=== PATIENT | female | born 1940 | race Two or more races ===

== ENCOUNTER 2025-01-30 13:01 | Inpatient (IN) | payer MEDICARE, OTHER ==
[~2025-01-30] VITALS: Ht 162.6 cm; Wt 74.6 kg
--- NOTE | 2025-01-30 13:17 | ED.PDOC ---
History of Present Illness HPI Comments HPI: Poor Historian. 84-year-old female brought in by ambulance from home for evaluation of generalized weakness that was noted today by family members. Patient herself denies any acute generalized weakness. Patient is nonambulatory. Patient is oxygen dependent at home. No family members available at bedside at the time of my evaluation. history of breast cancer but is not receiving any treatment at this time Past Medical History: Past Surgical History: Mastectomy REVIEW OF SYSTEMS: CONSTITUTIONAL: Denies acute: fever, diaphoresis, chills, HEAD: Denies acute: headache, photophobia Eyes: Denies acute: Double vision, vision loss, eye pain, eye discharge. EARS: Denies acute: tinnitus, hearing loss, ear discharge, ear pain, THROAT: Denies acute: sore throat, swelling, difficulty swallowing , pain with swallowing, change in voice. NECK: Denies acute: neck pain, neck swelling, stiff neck. HEART: Denies acute : chest pain, palpitations, LUNGS: Denies acute: SOB, wheezing, cough, hemoptysis ABDOMEN: Denies acute: abdominal pain, Nausea, Vomiting, diarrhea, melena , hematemesis, hematochezia SKIN: Denies acute: rash, redness, lesions, itchiness. EXTREMITIES: Denies acute: calf pain, numbness, tingling, weakness, denies pain in extremity. Denies acute: Low back pain. Neuro: Denies acute: focal neurological deficit, motor or sensory focal neurological deficit, tremors, seizure like activity, confusion, dizziness, change in mental status, loss of bowel or bladder function, cauda equina like symptoms. : Denies acute: dysuria, hematuria, flank pain, increase in urinary frequency. PSYCH: Denies acute: hallucination, suicidal ideation, homicidal ideation. FEMALE: Denies acute: abnormal vaginal bleeding, foul odor, unusual discharge. PHYSICAL EXAM: General: ---no-----acute distress, awake and alert. Head: normocephalic, atraumatic. Neck: supple, trachea is midline, no swelling. Throat: Normal phonation. Eyes:, no erythema, no purulent discharge, no proptosis, no icterus. Heart: regular rate, regular rhythm, no significant murmur appreciated. Lungs: no apparent respiratory distress, Able to speak in full sentences. No wheezing, no rhonchi, no crackles. No stridors Clear to auscultation bilaterally. Abdomen: non tender to palpation, non distended, soft, no guarding, no rebound, + bowel sounds. Neuro: Awake, Alert, oriented to name, self, situation, follows commands GCS=15. Speech is normal. Skin: no petechia, no purpura, no cyanosis, slightly-pale, not jaundice. Lower extremities: --trace bilateral - Pitting edema no deformity, no focal swelling, no calf TTP. Makes eye contact. moves all four extremities. Face: no apparent facial droop. ED COURSE: DISCLAIMER: This medical document was created using an electronic medical record system with voice recognition software and computerized dictation system. Although this docu ment has been carefully reviewed, there might still be some phonetic and typographical errors. Occasional wrong-word or "sound-alike" substitutions may have occurred due to the inherent limitations of voice recognition software. These areas are purely typographical due to imperfections of the software programs and do not reflect any compromise in the patient's medical care. Please read the chart carefully and recognize, using context, where these substitutions have occurred. Chief Complaint: General Weakness Time Seen by MD: 13:00 Reviewed Notes: Nurses Notes Allergies: Coded Allergies: Amoxicillin (Verified Allergy, Unknown, 01/30/25) Home Meds Reported Medications Amlodipine Besylate (Amlodipine Besylate) 5 Mg Tab, 1 TAB PO DAILY 01/30/25 Cholestyramine (Cholestyramine) 4 Gm Pow, 1 PKT PO BID 01/30/25 Levothyroxine Sodium (Levothyroxine Sodium) 88 Mcg Tab, 1 TAB PO DAILY 01/30/25 Lisinopril & Hydrochlorothiazi (Lisinopril/Hydrochlorothi) 1 Tab Tab, 1 TAB PO DAILY 01/30/25 Information Source: Patient, Emergency Med Personnel X-Ray, Labs, Meds, VS Vital Signs Date Time Temp Pulse Resp B/P (MAP) Pulse Ox O2 Delivery O2 Flow Rate FiO2 01/30/25 15:30 83 12 130/42 (71) 98 01/30/25 15:18 130/42 01/30/25 14:53 19 99 Nasal Cannula* 2 28 01/30/25 13:35 83 12 99 Nasal Cannula* 2 28 01/30/25 13:35 98.1 83 12 139/49 (79) 98 98.1 01/30/25 13:15 98.2 82 18 120/58 (78) 96 98.2 01/30/25 13:06 86 Lab Test 01/30/25 15:07 01/30/25 13:36 01/30/25 13:12 Range/Units Troponin I High Sensitivity 8 7 </=34 ng/L White Blood Count 4.9 4.4-10.8 10^3/uL Red Blood Count 2.94 L 4.0-5.20 10^6/uL Hemoglobin 8.6 L 12.2-16.2 g/dL Hematocrit 26.6 L 36.0-46.0 % Mean Corpuscular Volume 90.3 80.0-100.0 fL Mean Corpuscular Hemoglobin 29.3 28.0-32.0 pg Mean Corpuscular Hemoglobin Concent 32.5 32.0-36.0 g/dL Red Cell Distribution Width 16.9 H 11.8-14.3 % Platelet Count 204 140-450 10^3/uL Mean Platelet Volume 8.1 6.9-10.8 fL Neutrophils (%) (Auto) 77.1 37.0-80.0 % Lymphocytes (%) (Auto) 7.4 L 10.0-50.0 % Monocytes (%) (Auto) 10.0 0.0-12.0 % Eosinophils (%) (Auto) 5.0 0.0-7.0 % Basophils (%) (Auto) 0.5 0.0-2.0 % Neutrophils # (Auto) 3.8 1.6-8.6 10 ^3/uL Lymphocytes # (Auto) 0.4 0.4-5.4 10 ^3/uL Monocytes # (Auto) 0.5 0-1.3 10 ^3/uL Eosinophils # (Auto) 0.2 0-0.8 10 ^3/uL Basophils # (Auto) 0 0-0.2 10 ^3/uL Nucleated Red Blood Cells 0.1 % Sodium Level 137 136-145 mmol/L Potassium Level 5.7 *H 3.5-5.1 mmol/L Chloride Level 112 H 98-107 mmol/L Carbon Dioxide Level 16 L 20-31 mmol/L Anion Gap 9 5-15 Blood Urea Nitrogen 59 H 9-23 mg/dL Creatinine 6.26 H 0.550-1.02 mg/dL Glomerular Filtration Rate Calc 6 >90 mL/min BUN/Creatinine Ratio 9.4 L 10.0-20.0 Serum Glucose 98 74-106 mg/dL Hemoglobin A1c Pending Calcium Level 8.8 8.7-10.4 mg/dL Magnesium Level 1.6 1.6-2.6 mg/dL Total Bilirubin < 0.2 L 0.2-1.0 mg/dL Aspartate Amino Transferase (AST) 42 H 13-40 U/L Alanine Aminotransferase (ALT) 24 7-40 U/L Alkaline Phosphatase 72 46-116 U/L B-Type Natriuretic Peptide 281.70 0-100 pg/mL Total Protein 5.5 L 5.7-8.2 g/dL Albumin 3.6 3.2-4.8 g/dL POC Glucose 86 70-106 mg/dl Current Medications Medications (Trade) Dose Ordered Sig/Sheila Route Start Time Stop Time Status Last Admin Albuterol (Ventolin Medneb) 20 mg ONCE ONCE NEB 01/30/25 14:30 01/30/25 14:36 DC 01/30/25 14:53 Sodium Bicarbonate 50 ml ONCE ONCE IV 01/30/25 14:30 01/30/25 14:36 DC 01/30/25 15:15 Furosemide (Lasix Injection) 20 mg ONCE ONCE IV 01/30/25 14:30 01/30/25 14:36 DC 01/30/25 15:18 Calcium Gluconate/ Sodium Chloride 50 ml @ 120 mls/hr ONCE ONCE IV 01/30/25 14:30 01/30/25 14:54 DC 01/30/25 15:16 Zirconium Oxide (Lokelma) 10 gm ONCE ONCE PO 01/30/25 14:30 01/30/25 14:36 DC 01/30/25 15:15 Sodium Chloride 1,000 ml @ 1,000 mls/hr Q1H ONCE IV 01/30/25 14:45 01/30/25 15:44 DC 01/30/25 15:46 Time of 1ST Reevaluation: 13:30 Departure 1 Departure Time of Disposition: 14:28 Impression: Primary Impression: Acute renal failure Additional Impressions: Hyperkalemia UTI (urinary tract infection) Disposition: ADMITTED INPATIENT Admit to: Tele Condition: Guarded Discharged With: Self I personally scribed for DEWAYNE TOMLINSON DO ([email or web address]) on 01/30/25 at 13:17. Electronically submitted by [place] [email or web address]). DEWAYNE TOMLINSON DO Jan 30, 2025 13:17
[2025-01-30 13:35] VITALS: PULSE 83; RESP 12; O2SAT 99
[2025-01-30 13:56] LABS: Hematocrit 26.6 % (36.0-46.0); Hemoglobin 8.6 g/dL (12.2-16.2); Mean Corpuscular Hemoglobin 29.3 pg (28.0-32.0); Mean Corpuscular Volume 90.3 fL (80.0-100.0); Nucleated Red Blood Cells % 0.1 %
--- NOTE | 2025-01-30 14:10 | DVH ---
EXAM: XY CHEST PORTABLE HISTORY: gen weak COMPARISON: None TECHNIQUE: Portable upright AP view of the chest was performed. FINDINGS: There are diffuse bilateral interstitial opacities. No pneumothorax or consolidative infiltrates. The heart is borderline enlarged. There are postoperative changes of ACDF and spinal cord stimulator. IMPRESSION: Diffuse bilateral interstitial opacities may be due to CHF exacerbation, interstitial pneumonia, and/ or reactive airways disease.
[2025-01-30 14:14] LABS: Alanine Aminotransferase 24 U/L (7-40); Albumin 3.6 g/dL (3.2-4.8); Alkaline Phosphatase 72 U/L (46-116); Anion Gap 9 (5-15); BUN/Creatinine Ratio 9.4 (10.0-20.0); Calcium 8.8 mg/dL (8.7-10.4); Glucose 98 mg/dL (74-106); Magnesium 1.6 mg/dL (1.6-2.6); Sodium 137 mmol/L (136-145)
[2025-01-30 14:18] LABS: Blood Urea Nitrogen 59 mg/dL (9-23); Carbon Dioxide 16 mmol/L (20-31); Chloride 112 mmol/L (98-107)
[2025-01-30 14:21] LABS: Bilirubin, Total < 0.2 mg/dL (0.2-1.0)
[2025-01-30 14:22] LABS: Total Protein 5.5 g/dL (5.7-8.2)
[2025-01-30 14:24] LABS: Potassium 5.7 mmol/L (3.5-5.1)
[2025-01-30] MEDS: ALBUTEROL SULF 2.5 MG/0.5ML(0.5%) NEB SOLN NEB ONE (14:53)
[2025-01-30] MEDS: SODIUM BICARB 8.4% 50Meq/50ml SYR INJ IV ONE (15:15)
[2025-01-30] MEDS: SODIUM ZIRCONIUM CYCL 10 GM PAK PO ONE (15:15)
[2025-01-30] MEDS: CALCIUM GLUC 1,000mg/50ml-NS 50 ML IV ONE (15:16)
[2025-01-30] MEDS: FUROSEMIDE 20 MG/2 ML VIAL IV ONE (15:18)
[2025-01-30] MEDS ORDERED: LISI-287 PO (15:43)
[2025-01-30] MEDS ORDERED: CHOL4POW33 PO (15:43)
[2025-01-30] MEDS ORDERED: LEVO-177 PO (15:43)
[2025-01-30] MEDS ORDERED: AMLO1TAB22 PO (15:43)
[2025-01-30] MEDS ORDERED: ACETAMINOPHEN 325 MG TAB PO PRN (15:45)
[2025-01-30] MEDS ORDERED: MORPHINE SULFATE INJ 2 MG/ml SYRG IV PRN (15:45)
[2025-01-30] MEDS ORDERED: NITROGLYCERIN 0.4 MG SL TAB SL PRN (15:45)
--- NOTE | 2025-01-30 15:45 | DVHHP2 ---
History of Present Illness Reason for Visit: Generalized weakness History of Present Illness Anisa Davis is an 84-year-old female with past medical history of hyperlipidemia, diabetes, COPD, CKD, CHF, breast cancer status post bilateral mastectomy, yeast infection, recurrent UTIs, tonsillectomy, appendectomy, hysterectomy, neck fusion, back surgery, and right knee replacement who presents to the ED with generalized weakness x2 days. Patient's daughter Andrea is at the bedside and states that she was recently admitted to [facility] from December 17 to January 06 for UTI and was on doxycycline. Patient's daughter states that the last 2 days she has been progressively getting weak and she has been unable to h old bottles or cups in her hands. Patient denies any chest pain, shortness of breath, fever, chills, lightheadedness, dizziness, recent trauma or injury, recent sick contacts, recent travels, recent ingestion of spoiled food, abdominal pain, nausea, vomiti ng, or diarrhea. Patient's daughter also reports that she uses continuous oxygen 2 L nasal cannula at home. Currently at bedside patient wearing bilateral Loki hose. Cardiovascular: CHF, hyperipidemia Pulmonary: COPD Renal/: Chronic renal insuff, UTI Endocrine: Diabetes Past Medical History Breast cancer Yeast infection Past Surgical History: Appendectomy, Hysterectomy, Mastectomy, Other (Neck fusion, back surgery, and right knee replacement), Tonsillectomy Family History: None Smoke: Quit (Uses smoke 1 pack per day) ALCOHOL: none Drugs: None Lives: with Family Domestic Violence: Neg Review of Systems Constitutional: Yes: Weakness Allergies: Coded Allergies: Amoxicillin (Verified Allergy, Unknown, 01/30/25) Exam Vital Signs Vital Signs Date Time Temp Pulse Resp B/P (MAP) Pulse Ox O2 Delivery O2 Flow Rate FiO2 01/30/25 15:18 130/42 01/30/25 14:53 19 99 Nasal Cannula* 2 28 01/30/25 13:35 98.1 83 98.1 General Appearance: Alert, Oriented X3, Cooperative, No acute distress HEENT: Atraumatic, PERRLA, EOMI, Mucous membr. moist/pink Respiratory: Normal air movement Cardiovascular: Regular rate, Normal S1, Normal S2 Abdominal: Normal bowel sounds, Soft Extremities: Normal pulses Skin: No significant lesion Neuro: Normal speech, Normal tone, Sensation intact Psych/Mental Status: Mental status NL, Mood NL Labs/Xrays Labs Test 01/30/25 15:07 01/30/25 13:36 01/30/25 13:12 Range/Units Troponin I High Sensitivity 8 </=34 ng/L White Blood Count 4.9 4.4-10.8 10^3/uL Red Blood Count 2.94 L 4.0-5.20 10^6/uL Hemoglobin 8.6 L 12.2-16.2 g/dL Hematocrit 26.6 L 36.0-46.0 % Mean Corpuscular Volume 90.3 80.0-100.0 fL Mean Corpuscular Hemoglobin 29.3 28.0-32.0 pg Mean Corpuscular Hemoglobin Concent 32.5 32.0-36.0 g/dL Red Cell Distribution Width 16.9 H 11.8-14.3 % Platelet Count 204 140-450 10^3/uL Mean Platelet Volume 8.1 6.9-10.8 fL Neutrophils (%) (Auto) 77.1 37.0-80.0 % Lymphocytes (%) (Auto) 7.4 L 10.0-50.0 % Monocytes (%) (Auto) 10.0 0.0-12.0 % Eosinophils (%) (Auto) 5.0 0.0-7.0 % Basophils (%) (Auto) 0.5 0.0-2.0 % Neutrophils # (Auto) 3.8 1.6-8.6 10 ^3/uL Lymphocytes # (Auto) 0.4 0.4-5.4 10 ^3/uL Monocytes # (Auto) 0.5 0-1.3 10 ^3/uL Eosinophils # (Auto) 0.2 0-0.8 10 ^3/uL Basophils # (Auto) 0 0-0.2 10 ^3/uL Nucleated Red Blood Cells 0.1 % Sodium Level 137 136-145 mmol/L Potassium Level 5.7 *H 3.5-5.1 mmol/L Chloride Level 112 H 98-107 mmol/L Carbon Dioxide Level 16 L 20-31 mmol/L Anion Gap 9 5-15 Blood Urea Nitrogen 59 H 9-23 mg/dL Creatinine 6.26 H 0.550-1.02 mg/dL Glomerular Filtration Rate Calc 6 >90 mL/min BUN/Creatinine Ratio 9.4 L 10.0-20.0 Serum Glucose 98 74-106 mg/dL Calcium Level 8.8 8.7-10.4 mg/dL Magnesium Level 1.6 1.6-2.6 mg/dL Total Bilirubin < 0.2 L 0.2-1.0 mg/dL Aspartate Amino Transferase (AST) 42 H 13-40 U/L Alanine Aminotransferase (ALT) 24 7-40 U/L Alkaline Phosphatase 72 46-116 U/L B-Type Natriuretic Peptide 281.70 0-100 pg/mL Total Protein 5.5 L 5.7-8.2 g/dL Albumin 3.6 3.2-4.8 g/dL POC Glucose 86 70-106 mg/dl EXAM: XY CHEST PORTABLE HISTORY: gen weak COMPARISON: None TECHNIQUE: Portable upright AP view of the chest was performed. FINDINGS: There are diffuse bilateral interstitial opacities. No pneumothorax or consolidative infiltrates. The heart is borderline enlarged. There are postoperative changes of ACDF and spinal cord stimulator. IMPRESSION: Diffuse bilateral interstitial opacities may be due to CHF exacerbation, interstitial pneumonia, and/or reactive airways disease. Assessment/Plan Assessment/Plan Assessment Acute on chronic CHF exacerbation Acute hypoxic respiratory failure Generalized weakness Hyperkalemia Probable pneumonia versus reactive airway disease Probable UTI History of hyperlipidemia History of diabetes History of COPD on oxygen History of CKD 4 History of CHF History of breast cancer status post mastectomy bilateral History of yeast infection History of UTI History of tonsillectomy History of appendectomy History of hysterectomy History of neck fusion History of back surgery History of right knee replacement Plan Admit to tele Hemoglobin A1c ISS and Accu-Cheks Supportive oxygen Chest x-ray noted NS 1 L given ED Hyperkalemia protocol EKG UA Troponin negative x2 Mag level BNP Urine culture - when patient was placed with [facility] noted to have cloudy urine output IV antibiotics-levofloxacin Antiemetics Pain management Strict I&Os Daily weight Diuretics Diet Home medications reconciled DVT prophylaxis-Lovenox PUD prophylaxis-PPIs Discussed plan of care with patient and nurse Nephro consult [id number] Behavior change smoking greater than 10 minutes about use of other options [id number] Preventive counseling healthy eating habits, physical activity, and regular checkups Plan discussed with: Patient My Orders Orders - LALITA LAMA Procedure Category Date Status Time Admit ADMIT 01/30/25 Transmitted 15:39 Allergies PRISCILA 01/30/25 Transmitted 15:39 Code Status CODE 01/30/25 Transmitted 15:39 Ondansetron Hcl PHA 01/30/25 Transmitted (Zofran) 15:45 Complete Blood Count LAB 01/31/25 Verified 04:00 Comprehensive LAB 01/31/25 Verified Metabolic Panel 04:00 Acetaminophen Tablet PHA 01/30/25 Transmitted (Tylenol Tablet) 15:45 Nitroglycerin PHA 01/30/25 Transmitted Sublingual (Ntrostat 15:45 Morphine Sulfate PHA 01/30/25 Verified Injection 15:45 Stat Ekg For Chest [facility] 01/30/25 Verified Pain 15:39 Emergency Dysrhythmia [facility] 01/30/25 Verified Protocol 15:39 Rhythm Strips Once PRISCILA 01/30/25 Verified Every Shift 15:39 Oxygen By Nasal RT 01/30/25 Verified Cannula 15:39 Date of Service: Jan 30, 2025 Billing Provider: LALITA LAMA Common Visit Codes: 62511-ZAGYCFV INP/OBS CARE (HIGH) Secondary Visit Codes: 59182-DLHZGCSOJV COUNSELING IND, 64207-MWJLY CHNG SMOKING >10MIN LALITA LAMA Jan 30, 2025 15:45
[2025-01-30] MEDS: SODIUM CHLORIDE 0.9% 1,000 ML IV ONE (15:46)
[2025-01-30 16:30] LABS: Urine Protein, UAD TRACE (Negative); Urine WBC Clumps PRESENT /hpf (None Seen)
[2025-01-30] MEDS ORDERED: DEXTROSE (50%) 50ML SYRG IV PRN (17:15)
[2025-01-30] MEDS ORDERED: OXY5T PO (17:16)
[2025-01-30 20:00] VITALS: PULSE 95; RESP 18; O2SAT 98
[2025-01-30 21:00] VITALS: BP 102/52; PULSE 104; RESP 17; TEMP 97.6; O2SAT 96
[2025-01-30] MEDS: AZITHROMYCIN 500MG/ 250ML 250 ML IV ONE (21:02)
[2025-01-30] MEDS: InsuLIN REG 1unit/0.01ml Soln (100units/ml) SC SCH (21:11)
[2025-01-30] MEDS: ACCU-CHEK COMFORT CURVE STRIP VI SCH (21:11)
[2025-01-30] MEDS: CHOLESTYRAMINE 4 GM POWDER PO SCH (23:02)
[2025-01-30] MEDS ORDERED: SACC250C15 PO (23:12)
[2025-01-30] MEDS ORDERED: CHOLPOW4 PO (23:12)
[2025-01-30] MEDS ORDERED: MULT-1018 PO (23:12)
[2025-01-30] MEDS ORDERED: LOVA20TA4 PO (23:12)
[2025-01-30] MEDS ORDERED: GABA-1250 PO (23:12)
[2025-01-30] MEDS ORDERED: LEVO100T8 PO (23:12)
[2025-01-30] MEDS ORDERED: LETR2.5T PO (23:12)
[2025-01-31] VITALS (19 sets, daily range): BP systolic 89–129; BP diastolic 31–54; PULSE 87–112; RESP 12–20; TEMP 97.8–99.9; O2SAT 90–100
[2025-01-31] MEDS: LEVOTHYROXINE SODIUM 88 MCG TAB PO SCH (06:07)
[2025-01-31 07:03] LABS: Alanine Aminotransferase 21 U/L (7-40); Albumin 3.2 g/dL (3.2-4.8); Alkaline Phosphatase 58 U/L (46-116); Anion Gap 7 (5-15); BUN/Creatinine Ratio 8.8 (10.0-20.0); Nucleated Red Blood Cells % 0.1 %; Sodium 136 mmol/L (136-145)
[2025-01-31 07:06] LABS: Hematocrit 21.7 % (36.0-46.0); Hemoglobin 7.1 g/dL (12.2-16.2); Mean Corpuscular Hemoglobin 29.7 pg (28.0-32.0); Mean Corpuscular Volume 90.1 fL (80.0-100.0)
[2025-01-31 07:08] LABS: Potassium 5.4 mmol/L (3.5-5.1)
[2025-01-31 07:09] LABS: Bilirubin, Total < 0.2 mg/dL (0.2-1.0); Blood Urea Nitrogen 57 mg/dL (9-23); Calcium 8.2 mg/dL (8.7-10.4); Carbon Dioxide 17 mmol/L (20-31); Chloride 112 mmol/L (98-107); Glucose 106 mg/dL (74-106); Total Protein 5.2 g/dL (5.7-8.2)
[2025-01-31 09:03] LABS: Hematocrit 22.8 % (36.0-46.0); Hemoglobin 7.4 g/dL (12.2-16.2)
--- NOTE | 2025-01-31 09:13 | DVHCONRES ---
Family History: Patient reports no known family medical history. Allergies: Coded Allergies: Levofloxacin (Verified Allergy, Severe, 01/30/25) Amoxicillin (Verified Allergy, Unknown, 01/30/25) Home Meds Reported Medications Cholestyramine (Cholestyramine) Pow, 4 GM PO BID, POW 01/30/25 Multiple Vitamin (Multivitamins) Tab, 100 TAB PO DAILY, #90 TAB 3 Refills 01/30/25 Araujo's Yeast (Saccharomyces Boulardii) 250 Mg Cap, 250 MG PO, CAP 01/30/25 Lovastatin (Lovastatin) 20 Mg Tab, 20 MG PO, TAB 01/30/25 Levothyroxine Sodium (Levothyroxine Sodium) 100 Mcg Tab, 100 MCG PO QAM for 30 Days, MCG 01/30/25 Letrozole (Femara) 2.5 Mg Tab, 2.5 MG PO, TAB 01/30/25 Gabapentin (Gabapentin) 300 Mg Cap, 400 MG PO BID for 30 Days, MG 01/30/25 Oxycodone Hcl (OXYCODONE HCL) 5 Mg Tb, 20 MG PO Q6HPRN PRN for PAIN SCALE 7 THRU 10, TAB 01/30/25 Amlodipine Besylate (Amlodipine Besylate) 5 Mg Tab, 1 TAB PO DAILY 01/30/25 Cholestyramine (Cholestyramine) 4 Gm Pow, 1 PKT PO BID 01/30/25 Lisinopril & Hydrochlorothiazi (Lisinopril/Hydrochlorothi) 1 Tab Tab, 1 TAB PO DAILY 01/30/25 Discontinued Reported Medications Levothyroxine Sodium (Levothyroxine Sodium) 88 Mcg Tab, 1 TAB PO DAILY 01/30/25 Current Medications Current Medications Medications (Trade) Dose Ordered Sig/Sheila Route PRN Reason Start Time Stop Time Status Last Admin Ondansetron HCl (Zofran) 4 mg Q4HP PRN IV NAUSEA / VOMITING 01/30/25 15:45 Acetaminophen (Tylenol Tablet) 650 mg Q6HP PRN PO PAIN SCALE 1-3 OR TEMP>100.4 01/30/25 15:45 Nitroglycerin (Ntrostat Sublingual) 0.4 mg Q5MINP PRN SL FOR CHEST PAIN 01/30/25 15:45 Morphine Sulfate 2 mg Q30M PRN IV FOR CHEST PAIN 01/30/25 15:45 Amlodipine Besylate (Norvasc Tablet) 5 mg DAILY PO 01/31/25 10:00 Cholestyramine Resin (Questran Powder) 4 gm BID@1100,2300 PO 01/30/25 23:00 01/30/25 23:02 Levothyroxine Sodium (Synthroid Tablet) 88 mcg QAM PO 01/31/25 07:00 01/31/25 06:07 Patient Own Medication 1 tab DAILY PO 01/31/25 10:00 Future Hold Diagnostic Test (Pha) (Accu-Chek Comfort Curve T) 1 strip ACHS 01/30/25 22:00 01/31/25 06:07 Insulin Human Regular (InsuLIN R) ACHS SC 01/30/25 22:00 Dextrose 50 ml UD PRN IV Blood Sugar LESS THAN 60 01/30/25 17:15 Enoxaparin Sodium (Lovenox) 30 mg DAILY SC 01/31/25 10:00 Pantoprazole Sodium (Protonix) 40 mg DAILY IV 01/31/25 10:00 Levofloxacin 50 ml @ 50 mls/hr Q48H IV 02/01/25 17:30 01/30/25 20:27 DC Azithromycin 250 ml @ 125 mls/hr DAILY IV 01/31/25 10:00 Oxycodone HCl (OxyCONTIN ER Tablet) 20 mg Q6HP PRN PO PAIN SCALE 7 THRU 10 01/30/25 20:30 01/30/25 21:02 Vital Signs Vital Signs Date Time Temp Pulse Resp B/P (MAP) Pulse Ox O2 Delivery O2 Flow Rate FiO2 01/31/25 05:00 98.5 88 17 108/50 (69) 93 98.5 01/30/25 20:00 Nasal Cannula* 2 28 Labs/Diagnostic Data Labs Test 01/31/25 08:37 01/31/25 06:06 01/31/25 04:50 01/30/25 19:44 Range/Units Hemoglobin 7.4 L 12.2-16.2 g/dL Hematocrit 22.8 L 36.0-46.0 % POC Glucose 93 70-106 mg/dl White Blood Count 4.6 4.4-10.8 10^3/uL Red Blood Count 2.41 L 4.0-5.20 10^6/uL Mean Corpuscular Volume 90.1 80.0-100.0 fL Mean Corpuscular Hemoglobin 29.7 28.0-32.0 pg Mean Corpuscular Hemoglobin Concent 32.9 32.0-36.0 g/dL Red Cell Distribution Width 17.2 H 11.8-14.3 % Platelet Count 171 140-450 10^3/uL Mean Platelet Volume 8.7 6.9-10.8 fL Neutrophils (%) (Auto) 85.8 H 37.0-80.0 % Lymphocytes (%) (Auto) 4.6 L 10.0-50.0 % Monocytes (%) (Auto) 9.1 0.0-12.0 % Eosinophils (%) (Auto) 0.3 0.0-7.0 % Basophils (%) (Auto) 0.2 0.0-2.0 % Neutrophils # (Auto) 4.0 1.6-8.6 10 ^3/uL Lymphocytes # (Auto) 0.2 L 0.4-5.4 10 ^3/uL Monocytes # (Auto) 0.4 0-1.3 10 ^3/uL Eosinophils # (Auto) 0 0-0.8 10 ^3/uL Basophils # (Auto) 0 0-0.2 10 ^3/uL Nucleated Red Blood Cells 0.1 % Sodium Level 136 136-145 mmol/L Potassium Level 5.4 H 3.5-5.1 mmol/L Chloride Level 112 H 98-107 mmol/L Carbon Dioxide Level 17 L 20-31 mmol/L Anion Gap 7 5-15 Blood Urea Nitrogen 57 H 9-23 mg/dL Creatinine 6.45 H 0.550-1.02 mg/dL Glomerular Filtration Rate Calc 6 >90 mL/min BUN/Creatinine Ratio 8.8 L 10.0-20.0 Serum Glucose 106 74-106 mg/dL Calcium Level 8.2 L 8.7-10.4 mg/dL Total Bilirubin < 0.2 L 0.2-1.0 mg/dL Aspartate Amino Transferase (AST) 36 13-40 U/L Alanine Aminotransferase (ALT) 21 7-40 U/L Alkaline Phosphatase 58 46-116 U/L Total Protein 5.2 L 5.7-8.2 g/dL Albumin 3.2 3.2-4.8 g/dL Troponin I High Sensitivity 19 </=34 ng/L Test 01/30/25 16:12 01/30/25 13:36 Range/Units Urine Color Colorless Yellow Urine Clarity Ex.turbid Clear Urine pH 5.0 5.0-9.0 Urine Specific [place] 1.008 1.001-1.035 Urine Protein Trace H Negative Urine Ketones Negative Negative Urine Blood Trace H Negative /uL Urine Nitrite Negative Negative Urine Bilirubin Negative Negative Urine Urobilinogen Normal Negative mg/dL Urine Leukocyte Esterase 3+ Negative /uL Urine RBC 12 0 - 4 /hpf Urine WBC Clumps Present None Seen /hpf Urine Microscopic WBC 456 H 0-5 /HPF Urine Squamous Epithelial Cells None seen <5 /hpf Urine Bacteria Few H None Seen /hpf Urine Glucose Normal Normal mg/dL Hemoglobin A1c 4.9 <5.7 % A1C Magnesium Level 1.6 1.6-2.6 mg/dL B-Type Natriuretic Peptide 281.70 0-100 pg/mL Microbiology Date/Time Source Procedure Growth Status 01/30/25 16:12 Urine - [facility] [place] Urine Culture - Preliminary Resulted PATRICIO ENGEL RESIDENT Jan 31, 2025 09:13
[2025-01-31] MEDS ORDERED: LISINOPRIL PO SCH (10:00)
[2025-01-31] MEDS ORDERED: HYDROCHLOROTHIAZIDE PO SCH (10:00)
--- NOTE | 2025-01-31 10:04 | DVH ---
EXAM: US Retroperitoneal Limited, Renal CLINICAL INDICATION: Pain TECHNIQUE: Real-time limited ultrasound of the retroperitoneum with image documentation. COMPARISON: No relevant prior studies available. FINDINGS: RIGHT KIDNEY: Right kidney measures up to 9.98 cm. No stones. No hydronephrosis. LEFT KIDNEY: Left kidney measures up to 11.944 cm. No stones. No hydronephrosis. TUBES, LINES AND DEVICES: Urinary blastic respiratory catheter. IMPRESSION: No acute findings in the retroperitoneum.
[2025-01-31] MEDS: PANTOPRAZOLE 40 MG/10 ML VIAL INJ IV SCH (10:54)
[2025-01-31] MEDS: AZITHROMYCIN 500MG/ 250ML 250 ML IV SCH (10:54)
[2025-01-31] MEDS: ENOXAPARIN SOD 30 MG/0.3 ML SYRINGE SC SCH (10:54)
--- NOTE | 2025-01-31 11:39 | DVHPN2 ---
Changes from previous H/P or p: No Changes Objective Vitals Vital Signs Date Time Temp Pulse Resp B/P (MAP) Pulse Ox O2 Delivery O2 Flow Rate FiO2 01/31/25 10:00 123/45 01/31/25 05:00 98.5 88 17 93 98.5 01/30/25 20:00 Nasal Cannula* 2 28 Intake/Output Intake and Output 01/31/25 07:00 Intake Total 1320 ml Output Total 550 ml Balance 770 ml Intake Oral 20 ml IV Total 1300 ml Output Urine Total 550 ml Medications Current Medications Medications Dose Ordered Sig/Sheila Route Start Time Stop Time Status Last Admin Dose Admin Ondansetron HCl 4 mg Q4HP PRN IV 01/30/25 15:45 Acetaminophen 650 mg Q6HP PRN PO 01/30/25 15:45 Nitroglycerin 0.4 mg Q5MINP PRN SL 01/30/25 15:45 Morphine Sulfate 2 mg Q30M PRN IV 01/30/25 15:45 Amlodipine Besylate 5 mg DAILY PO 01/31/25 10:00 Cholestyramine Resin 4 gm BID@1100,2300 PO 01/30/25 23:00 01/31/25 10:54 4 GM Levothyroxine Sodium 88 mcg QAM PO 01/31/25 07:00 01/31/25 06:07 88 MCG Diagnostic Test (Pha) 1 strip ACHS 01/30/25 22:00 01/31/25 06:07 1 STRIP Insulin Human Regular ACHS SC 01/30/25 22:00 Dextrose 50 ml UD PRN IV 01/30/25 17:15 Enoxaparin Sodium 30 mg DAILY SC 01/31/25 10:00 01/31/25 10:54 30 MG Pantoprazole Sodium 40 mg DAILY IV 01/31/25 10:00 01/31/25 10:54 40 MG Azithromycin 250 ml @ 125 mls/hr DAILY IV 01/31/25 10:00 01/31/25 10:54 125 MLS/HR Oxycodone HCl 20 mg Q6HP PRN PO 01/30/25 20:30 01/30/25 21:02 20 MG Laboratory Results Laboratory Tests 01/31/25 04:50 01/31/25 08:37 Chemistry Test 01/30/25 13:36 01/31/25 04:50 Albumin 3.6 g/dL (3.2-4.8) 3.2 g/dL (3.2-4.8) Calcium Level 8.8 mg/dL (8.7-10.4) 8.2 mg/dL (8.7-10.4) L Magnesium Level 1.6 mg/dL (1.6-2.6) Total Protein 5.5 g/dL (5.7-8.2) L 5.2 g/dL (5.7-8.2) L Cardiac Markers Test 01/30/25 13:36 B-Type Natriuretic Peptide 281.70 pg/mL (0-100) LFT Test 01/30/25 13:36 01/31/25 04:50 Alanine Aminotransferase (ALT) 24 U/L (7-40) 21 U/L (7-40) Alkaline Phosphatase 72 U/L (46-116) 58 U/L (46-116) Aspartate Amino Transferase (AST) 42 U/L (13-40) H 36 U/L (13-40) Total Bilirubin < 0.2 mg/dL (0.2-1.0) L < 0.2 mg/dL (0.2-1.0) L HgA1c, TSH Test 01/30/25 13:36 Hemoglobin A1c 4.9 % A1C (<5.7) Urinalysis Test 01/30/25 16:12 Urine Color Colorless (Yellow) Urine Clarity Ex.turbid (Clear) Urine pH 5.0 (5.0-9.0) Urine Specific [place] 1.008 (1.001-1.035) Urine Protein Trace (Negative) H Urine Ketones Negative (Negative) Urine Blood Trace /uL (Negative) H Urine Nitrite Negative (Negative) Urine Bilirubin Negative (Negative) Urine Urobilinogen Normal mg/dL (Negative) Urine Leukocyte Esterase 3+ /uL (Negative) Urine RBC 12 /hpf (0 - 4) Urine WBC Clumps Present /hpf (None Seen) Urine Microscopic WBC 456 /HPF (0-5) H Urine Squamous Epithelial Cells None seen /hpf (<5) Urine Bacteria Few /hpf (None Seen) H Urine Glucose Normal mg/dL (Normal) Microbiology Microbiology Date/Time Source Procedure Growth Status 01/30/25 16:12 Urine - [place] Urine Culture - Preliminary Resulted Labs and/or images reviewed: Labs reviewed by me, Image(s) reviewed by me Assessment/Plan Assessment/Plan Septic shock secondary to urinary tract infection Acute urinary tract infection; urine cultures showing Enterococcus: Zyvox 600 mg IV q 12 hrs Acute on chronic CHF exacerbation : Echo, cardiology consult Acute hypoxic respiratory failure Acute generalized weakness Acute hyperkalemia CKD 5 /ESRD: Nephrology consult for DR Sifuentes Acute COPD exacerbation History of breast cancer status post bilateral mastectomy chemotherapy 2020, recent recurrence for which he was admitted to [facility] Severe anemia hemoglobin 7.1: RBC transfusion, GI consult for Dr Ricardo History of recurrent UTIs History of Back surgery and neck surgery Daughter ZHANNA Ann [phone] at bedside General condition very poor prognosis very poor PCP DR Esparza Time spent 75 minutes Advanced care planning time 20 minutes Patient is full code Plan discussed with: Patient My Orders Orders - LADONNA GRAY MD Procedure Category Date Status Time Linzeolid 600 Mg Ivpb PHA 01/31/25 Transmitted 22:00 Date of Service: Jan 31, 2025 Billing Provider: LADONNA GRAY MD Common Visit Codes: 82398-[id number] CARE 30-74 MIN, [id number] CARE-EACH +30MIN LADONNA GRAY MD Jan 31, 2025 11:39
[2025-01-31] MEDS: ALBUTEROL SULF 2.5 MG/0.5ML(0.5%) NEB SOLN NEB ONE (11:45)
[2025-01-31 12:23] LABS: Protein, Urine 37.1 mg/dL (1-14)
[2025-01-31] MEDS: SODIUM BICARB 8.4% 50Meq/50ml SYR INJ IV ONE (12:29)
[2025-01-31] MEDS: DEXTROSE (50%) 50ML SYRG IV ONE (12:29)
[2025-01-31] MEDS: FUROSEMIDE 20 MG/2 ML VIAL IV ONE (12:30)
[2025-01-31] MEDS: SODIUM ZIRCONIUM CYCL 10 GM PAK PO ONE (12:31)
[2025-01-31] MEDS: InsuLIN REG 1unit/0.01ml Soln (100units/ml) IV ONE (12:33)
[2025-01-31] MEDS: LINEZOLID 600MG/300ML 300 ML IV ONE (12:58)
[2025-01-31 13:41] LABS: COVID19 ANTIGEN SOFIA FIA NEGATIVE (NEGATIVE)
[2025-01-31 15:25] LABS: Triglycerides 81 mg/dL (< 150)
[2025-01-31 15:27] LABS: Cholesterol 100 mg/dL (< 200)
[2025-01-31 15:29] LABS: HDL Cholesterol 33 mg/dL (40-59)
[2025-01-31] MEDS: SOD CHL IV SCH (15:30)
[2025-01-31] MEDS: D5 IV SCH (15:30)
[2025-01-31] MEDS: SODIUM BICARB IV SCH (15:30)
--- NOTE | 2025-01-31 15:31 | DVHINCON2 ---
Date of service: Jan 31, [address] Siddharth Villa Reason for Consultation Elevated BUN and creatinine, hyperkalemia History of Present Illness This is a 84-year-old female with history of breast cancer status post bilateral mastectomy and for which she was undergoing chemotherapy till recently, type 2 diabetes, hyperlipidemia brought into the emergency room because of generalized weakness. Patient had recent hospitalization in [facility] for TG. Patient responded to IV hydration. There was improvement in her GFR and she did not require renal replacement therapy. Labs on this admission here again shows a creatinine at 6.5. Also noted to be hyperkalemic with a potassium of 5.7. Nephrology consulted for the same. Patient seen and examined at bedside. Daughters are at bedside. Patient is extremely lethargic. Past Medical History As stated above Past Surgical History Mastectomy Family History: Patient reports no known family medical history. Social History No history of smoking, alcohol or drug abuse Allergies: Coded Allergies: Levofloxacin (Verified Allergy, Severe, 01/30/25) Amoxicillin (Verified Allergy, Unknown, 01/30/25) Home Meds Reported Medications Cholestyramine (Cholestyramine) Pow, 4 GM PO BID, POW 01/30/25 Multiple Vitamin (Multivitamins) Tab, 100 TAB PO DAILY, #90 TAB 3 Refills 01/30/25 Araujo's Yeast (Saccharomyces Boulardii) 250 Mg Cap, 250 MG PO, CAP 01/30/25 Lovastatin (Lovastatin) 20 Mg Tab, 20 MG PO, TAB 01/30/25 Levothyroxine Sodium (Levothyroxine Sodium) 100 Mcg Tab, 100 MCG PO QAM for 30 Days, MCG 01/30/25 Letrozole (Femara) 2.5 Mg Tab, 2.5 MG PO, TAB 01/30/25 Gabapentin (Gabapentin) 300 Mg Cap, 400 MG PO BID for 30 Days, MG 01/30/25 Oxycodone Hcl (OXYCODONE HCL) 5 Mg Tb, 20 MG PO Q6HPRN PRN for PAIN SCALE 7 THRU 10, TAB 01/30/25 Amlodipine Besylate (Amlodipine Besylate) 5 Mg Tab, 1 TAB PO DAILY 01/30/25 Cholestyramine (Cholestyramine) 4 Gm Pow, 1 PKT PO BID 01/30/25 Lisinopril & Hydrochlorothiazi (Lisinopril/Hydrochlorothi) 1 Tab Tab, 1 TAB PO DAILY 01/30/25 Discontinued Reported Medications Levothyroxine Sodium (Levothyroxine Sodium) 88 Mcg Tab, 1 TAB PO DAILY 01/30/25 Current Medications Current Medications Medications (Trade) Dose Ordered Sig/Sheila Route PRN Reason Start Time Stop Time Status Last Admin Ondansetron HCl (Zofran) 4 mg Q4HP PRN IV NAUSEA / VOMITING 01/30/25 15:45 Acetaminophen (Tylenol Tablet) 650 mg Q6HP PRN PO PAIN SCALE 1-3 OR TEMP>100.4 01/30/25 15:45 Nitroglycerin (Ntrostat Sublingual) 0.4 mg Q5MINP PRN SL FOR CHEST PAIN 01/30/25 15:45 Morphine Sulfate 2 mg Q30M PRN IV FOR CHEST PAIN 01/30/25 15:45 Amlodipine Besylate (Norvasc Tablet) 5 mg DAILY PO 01/31/25 10:00 Cholestyramine Resin (Questran Powder) 4 gm BID@1100,2300 PO 01/30/25 23:00 01/31/25 10:54 Levothyroxine Sodium (Synthroid Tablet) 88 mcg QAM PO 01/31/25 07:00 01/31/25 06:07 Patient Own Medication 1 tab DAILY PO 01/31/25 10:00 01/31/25 10:53 DC Diagnostic Test (Pha) (Accu-Chek Comfort Curve T) 1 strip ACHS 01/30/25 22:00 01/31/25 11:56 Insulin Human Regular (InsuLIN R) ACHS SC 01/30/25 22:00 Dextrose 50 ml UD PRN IV Blood Sugar LESS THAN 60 01/30/25 17:15 Enoxaparin Sodium (Lovenox) 30 mg DAILY SC 01/31/25 10:00 01/31/25 10:54 Pantoprazole Sodium (Protonix) 40 mg DAILY IV 01/31/25 10:00 01/31/25 10:54 Levofloxacin 50 ml @ 50 mls/hr Q48H IV 02/01/25 17:30 01/30/25 20:27 DC Azithromycin 250 ml @ 125 mls/hr DAILY IV 01/31/25 10:00 01/31/25 10:54 Oxycodone HCl (OxyCONTIN ER Tablet) 20 mg Q6HP PRN PO PAIN SCALE 7 THRU 10 01/30/25 20:30 01/30/25 21:02 Linezolid 300 ml @ 150 mls/hr Q12HR@0800,2200 IV 01/31/25 22:00 Review of Systems Unable to obtain because of her altered mentation Vital Signs Vital Signs Date Time Temp Pulse Resp B/P (MAP) Pulse Ox O2 Delivery O2 Flow Rate FiO2 01/31/25 13:00 98.1 92 17 106/44 (64) 93 98.1 01/31/25 11:45 Nasal Cannula 2.0 01/31/25 11:45 28 Physical Exam Patient is lethargic HEENT: Normocephalic Lungs: Bilateral good air entry CVS: S1, S2 regular rate rhythm Abdomen: Soft, bowel sounds present STATION USHER: Lethargic Extremities: No edema Labs/Diagnostic Data Labs Test 01/31/25 11:55 01/31/25 11:40 01/31/25 08:37 01/31/25 04:50 Range/Units POC Glucose 105 70-106 mg/dl Influenza Type A Antigen Negative Negative Influenza Type B Antigen Negative Negative SARS-CoV-2 Antigen (Rapid) Negative NEGATIVE Hemoglobin 7.4 L 12.2-16.2 g/dL Hematocrit 22.8 L 36.0-46.0 % White Blood Count 4.6 4.4-10.8 10^3/uL Red Blood Count 2.41 L 4.0-5.20 10^6/uL Mean Corpuscular Volume 90.1 80.0-100.0 fL Mean Corpuscular Hemoglobin 29.7 28.0-32.0 pg Mean Corpuscular Hemoglobin Concent 32.9 32.0-36.0 g/dL Red Cell Distribution Width 17.2 H 11.8-14.3 % Platelet Count 171 140-450 10^3/uL Mean Platelet Volume 8.7 6.9-10.8 fL Neutrophils (%) (Auto) 85.8 H 37.0-80.0 % Lymphocytes (%) (Auto) 4.6 L 10.0-50.0 % Monocytes (%) (Auto) 9.1 0.0-12.0 % Eosinophils (%) (Auto) 0.3 0.0-7.0 % Basophils (%) (Auto) 0.2 0.0-2.0 % Neutrophils # (Auto) 4.0 1.6-8.6 10 ^3/uL Lymphocytes # (Auto) 0.2 L 0.4-5.4 10 ^3/uL Monocytes # (Auto) 0.4 0-1.3 10 ^3/uL Eosinophils # (Auto) 0 0-0.8 10 ^3/uL Basophils # (Auto) 0 0-0.2 10 ^3/uL Nucleated Red Blood Cells 0.1 % Sodium Level 136 136-145 mmol/L Potassium Level 5.4 H 3.5-5.1 mmol/L Chloride Level 112 H 98-107 mmol/L Carbon Dioxide Level 17 L 20-31 mmol/L Anion Gap 7 5-15 Blood Urea Nitrogen 57 H 9-23 mg/dL Creatinine 6.45 H 0.550-1.02 mg/dL Glomerular Filtration Rate Calc 6 >90 mL/min BUN/Creatinine Ratio 8.8 L 10.0-20.0 Serum Glucose 106 74-106 mg/dL Calcium Level 8.2 L 8.7-10.4 mg/dL Total Bilirubin < 0.2 L 0.2-1.0 mg/dL Aspartate Amino Transferase (AST) 36 13-40 U/L Alanine Aminotransferase (ALT) 21 7-40 U/L Alkaline Phosphatase 58 46-116 U/L Total Protein 5.2 L 5.7-8.2 g/dL Albumin 3.2 3.2-4.8 g/dL Vitamin B12 Level 471 211-911 pg/mL Vitamin D 25-Hydroxy 34.7 30.0-100 ng/mL Parathyroid Hormone (Intact) 201.3 H 18.4-80.1 pg/mL Test 01/30/25 19:44 01/30/25 16:12 01/30/25 13:36 Range/Units Troponin I High Sensitivity 19 </=34 ng/L Urine Color Colorless Yellow Urine Clarity Ex.turbid Clear Urine pH 5.0 5.0-9.0 Urine Specific [place] 1.008 1.001-1.035 Urine Protein Trace H Negative Urine Ketones Negative Negative Urine Blood Trace H Negative /uL Urine Nitrite Negative Negative Urine Bilirubin Negative Negative Urine Urobilinogen Normal Negative mg/dL Urine Leukocyte Esterase 3+ Negative /uL Urine RBC 12 0 - 4 /hpf Urine WBC Clumps Present None Seen /hpf Urine Microscopic WBC 456 H 0-5 /HPF Urine Squamous Epithelial Cells None seen <5 /hpf Urine Bacteria Few H None Seen /hpf Urine Creatinine 49.98 30.0-125.0 mg/dL Urine Protein/Creatinine Ratio 0.74 Urine Sodium 56 40-220 mmol/L Urine Glucose Normal Normal mg/dL Urine Total Protein 37.1 H 1-14 mg/dL Hemoglobin A1c 4.9 <5.7 % A1C Magnesium Level 1.6 1.6-2.6 mg/dL B-Type Natriuretic Peptide 281.70 0-100 pg/mL Microbiology Date/Time Source Procedure Growth Status 01/30/25 16:12 Urine - [place] Urine Culture - Preliminary Resulted Assessment Oliguric acute kidney injury secondary to ATN. Underlying Chronic kidney disease stage 3 UTI with Enterococcus Metabolic encephalopathy Hyperkalemia History of breast cancer Anemia Plan/Recommendation Start the patient on bicarb drip. D5 half NS with 75 mEq of sodium bicarb to run at 75 mL/hr. IV antibiotics Strict I's and O's Potassium levels have shown improvement. Transfusion as per primary. Labs in a.m. Plan discussed with: Daughter (In her the one here the for the patient is here) DEBORAH GARLAND MD Jan 31, 2025 15:31
--- NOTE | 2025-01-31 15:45 | DVHINCON2 ---
YO TORREZ [facility] 01/31/25 1545: Date Seen: Jan 31, 2025 Referring Physician MD Allen Reason for Consultation Possible CHF History of Present Illness This is an 84-year-old female patient who presents to the emergency room with chief complaint of generalized weakness. At the time of assessment, the patient appears confused and is not able to answer all questions. Patient's daughter, Andrea, at bedside able to further assist. Per Andrea, the patient was appearing to be weaker than usual when she was being assisted to the restroom at home. The patient came into the emergency room for further evaluation. Cardiology has been consulted at this time to rule out CHF. 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 Troponin levels have been negative. The patient denies any cardiac symptoms. Significant past medical history includes hypertension, dyslipidemia, thyroid disease, type 2 diabetes mellitus, breast cancer with bone metastasis (per [facility] report brought in by daughter), chronic kidney disease, and frequent urinary tract infections. Past Medical History Past medical history reviewed. No other significant than mentioned above. Past Surgical History Bilateral mastectomy Right knee replacement Left hip replacement Bilateral carpal tunnel surgery Multiple spinal fusions Family History: Patient reports no known family medical history. Family History Family history reviewed. Social History Patient has a 30 pack-year history, quit smoking over 30 years ago Denies illicit drug use or alcohol Allergies: Coded Allergies: Levofloxacin (Verified Allergy, Severe, 01/30/25) Amoxicillin (Verified Allergy, Unknown, 01/30/25) Home Meds Reported Medications Cholestyramine (Cholestyramine) Pow, 4 GM PO BID, POW 01/30/25 Multiple Vitamin (Multivitamins) Tab, 100 TAB PO DAILY, #90 TAB 3 Refills 01/30/25 Araujo's Yeast (Saccharomyces Boulardii) 250 Mg Cap, 250 MG PO, CAP 01/30/25 Lovastatin (Lovastatin) 20 Mg Tab, 20 MG PO, TAB 01/30/25 Levothyroxine Sodium (Levothyroxine Sodium) 100 Mcg Tab, 100 MCG PO QAM for 30 Days, MCG 01/30/25 Letrozole (Femara) 2.5 Mg Tab, 2.5 MG PO, TAB 01/30/25 Gabapentin (Gabapentin) 300 Mg Cap, 400 MG PO BID for 30 Days, MG 01/30/25 Oxycodone Hcl (OXYCODONE HCL) 5 Mg Tb, 20 MG PO Q6HPRN PRN for PAIN SCALE 7 THRU 10, TAB 01/30/25 Amlodipine Besylate (Amlodipine Besylate) 5 Mg Tab, 1 TAB PO DAILY 01/30/25 Cholestyramine (Cholestyramine) 4 Gm Pow, 1 PKT PO BID 01/30/25 Lisinopril & Hydrochlorothiazi (Lisinopril/Hydrochlorothi) 1 Tab Tab, 1 TAB PO DAILY 01/30/25 Discontinued Reported Medications Levothyroxine Sodium (Levothyroxine Sodium) 88 Mcg Tab, 1 TAB PO DAILY 01/30/25 Home Meds Home medications reviewed. Current Medications Current Medications Medications (Trade) Dose Ordered Sig/Sheila Route PRN Reason Start Time Stop Time Status Last Admin Ondansetron HCl (Zofran) 4 mg Q4HP PRN IV NAUSEA / VOMITING 01/30/25 15:45 Acetaminophen (Tylenol Tablet) 650 mg Q6HP PRN PO PAIN SCALE 1-3 OR TEMP>100.4 01/30/25 15:45 Nitroglycerin (Ntrostat Sublingual) 0.4 mg Q5MINP PRN SL FOR CHEST PAIN 01/30/25 15:45 Morphine Sulfate 2 mg Q30M PRN IV FOR CHEST PAIN 01/30/25 15:45 Amlodipine Besylate (Norvasc Tablet) 5 mg DAILY PO 01/31/25 10:00 Cholestyramine Resin (Questran Powder) 4 gm BID@1100,2300 PO 01/30/25 23:00 01/31/25 10:54 Levothyroxine Sodium (Synthroid Tablet) 88 mcg QAM PO 01/31/25 07:00 01/31/25 06:07 Patient Own Medication 1 tab DAILY PO 01/31/25 10:00 01/31/25 10:53 DC Diagnostic Test (Pha) (Accu-Chek Comfort Curve T) 1 strip ACHS 01/30/25 22:00 01/31/25 11:56 Insulin Human Regular (InsuLIN R) ACHS SC 01/30/25 22:00 Dextrose 50 ml UD PRN IV Blood Sugar LESS THAN 60 01/30/25 17:15 Enoxaparin Sodium (Lovenox) 30 mg DAILY SC 01/31/25 10:00 01/31/25 10:54 Pantoprazole Sodium (Protonix) 40 mg DAILY IV 01/31/25 10:00 01/31/25 10:54 Levofloxacin 50 ml @ 50 mls/hr Q48H IV 02/01/25 17:30 01/30/25 20:27 DC Azithromycin 250 ml @ 125 mls/hr DAILY IV 01/31/25 10:00 01/31/25 10:54 Oxycodone HCl (OxyCONTIN ER Tablet) 20 mg Q6HP PRN PO PAIN SCALE 7 THRU 10 01/30/25 20:30 01/30/25 21:02 Linezolid 300 ml @ 150 mls/hr Q12HR@0800,2200 IV 01/31/25 22:00 Review of Systems Constitutional: Generalized weakness Ears, Nose, & Throat: No symptom reported Eyes: No symptom reported Neurological: No symptoms reported Pulmonary/Respiratory: No symptoms reported Cardiovascular: No symptom reported Gastrointestinal: No symptom reported Genitourinary: No symptom reported Musculoskeletal: No symptom reported Skin: No symptom reported Psychiatric: No symptom reported Endocrine: No symptom reported Hematologic/Lymphatic: No symptom reported Vital Signs Vital Signs Date Time Temp Pulse Resp B/P (MAP) Pulse Ox O2 Delivery O2 Flow Rate FiO2 01/31/25 12:30 127/45 01/31/25 11:59 92 16 100 01/31/25 11:45 Nasal Cannula 2.0 01/31/25 11:45 28 01/31/25 05:00 98.5 98.5 Physical Exam General Appearance: Cooperative. Well-developed. Well-nourished. No acute distress. Pulmonary/Respiratory: Clear, bilateral breaths sounds. Cardiovascular/Chest: Regular rate and rhythm. Peripheral Pulses: 2+ Radial (R). 2+ Radial (L). 2+ Pedal (R). 2+ Pedal (L) Abdominal Exam: Normal bowel sounds. Ankle Exam: Negative ankle edema Lower extremities: Negative lower extremity edema Neuro/Mental Status: A/OX2, confused Thoughts/Psych: Deferred Appearance: No acute distress. Skin Exam: Normal inspection. Normal color. Warm and dry. Labs/Diagnostic Data Labs Test 01/31/25 11:55 01/31/25 11:40 01/31/25 08:37 01/31/25 04:50 Range/Units POC Glucose 105 70-106 mg/dl Influenza Type A Antigen Negative Negative Influenza Type B Antigen Negative Negative SARS-CoV-2 Antigen (Rapid) Negative NEGATIVE Hemoglobin 7.4 L 12.2-16.2 g/dL Hematocrit 22.8 L 36.0-46.0 % White Blood Count 4.6 4.4-10.8 10^3/uL Red Blood Count 2.41 L 4.0-5.20 10^6/uL Mean Corpuscular Volume 90.1 80.0-100.0 fL Mean Corpuscular Hemoglobin 29.7 28.0-32.0 pg Mean Corpuscular Hemoglobin Concent 32.9 32.0-36.0 g/dL Red Cell Distribution Width 17.2 H 11.8-14.3 % Platelet Count 171 140-450 10^3/uL Mean Platelet Volume 8.7 6.9-10.8 fL Neutrophils (%) (Auto) 85.8 H 37.0-80.0 % Lymphocytes (%) (Auto) 4.6 L 10.0-50.0 % Monocytes (%) (Auto) 9.1 0.0-12.0 % Eosinophils (%) (Auto) 0.3 0.0-7.0 % Basophils (%) (Auto) 0.2 0.0-2.0 % Neutrophils # (Auto) 4.0 1.6-8.6 10 ^3/uL Lymphocytes # (Auto) 0.2 L 0.4-5.4 10 ^3/uL Monocytes # (Auto) 0.4 0-1.3 10 ^3/uL Eosinophils # (Auto) 0 0-0.8 10 ^3/uL Basophils # (Auto) 0 0-0.2 10 ^3/uL Nucleated Red Blood Cells 0.1 % Sodium Level 136 136-145 mmol/L Potassium Level 5.4 H 3.5-5.1 mmol/L Chloride Level 112 H 98-107 mmol/L Carbon Dioxide Level 17 L 20-31 mmol/L Anion Gap 7 5-15 Blood Urea Nitrogen 57 H 9-23 mg/dL Creatinine 6.45 H 0.550-1.02 mg/dL Glomerular Filtration Rate Calc 6 >90 mL/min BUN/Creatinine Ratio 8.8 L 10.0-20.0 Serum Glucose 106 74-106 mg/dL Calcium Level 8.2 L 8.7-10.4 mg/dL Total Bilirubin < 0.2 L 0.2-1.0 mg/dL Aspartate Amino Transferase (AST) 36 13-40 U/L Alanine Aminotransferase (ALT) 21 7-40 U/L Alkaline Phosphatase 58 46-116 U/L Total Protein 5.2 L 5.7-8.2 g/dL Albumin 3.2 3.2-4.8 g/dL Vitamin B12 Level 471 211-911 pg/mL Vitamin D 25-Hydroxy 34.7 30.0-100 ng/mL Parathyroid Hormone (Intact) 201.3 H 18.4-80.1 pg/mL Test 01/30/25 19:44 01/30/25 16:12 01/30/25 13:36 Range/Units Troponin I High Sensitivity 19 </=34 ng/L Urine Color Colorless Yellow Urine Clarity Ex.turbid Clear Urine pH 5.0 5.0-9.0 Urine Specific [place] 1.008 1.001-1.035 Urine Protein Trace H Negative Urine Ketones Negative Negative Urine Blood Trace H Negative /uL Urine Nitrite Negative Negative Urine Bilirubin Negative Negative Urine Urobilinogen Normal Negative mg/dL Urine Leukocyte Esterase 3+ Negative /uL Urine RBC 12 0 - 4 /hpf Urine WBC Clumps Present None Seen /hpf Urine Microscopic WBC 456 H 0-5 /HPF Urine Squamous Epithelial Cells None seen <5 /hpf Urine Bacteria Few H None Seen /hpf Urine Creatinine 49.98 30.0-125.0 mg/dL Urine Protein/Creatinine Ratio 0.74 Urine Sodium 56 40-220 mmol/L Urine Glucose Normal Normal mg/dL Urine Total Protein 37.1 H 1-14 mg/dL Hemoglobin A1c 4.9 <5.7 % A1C Magnesium Level 1.6 1.6-2.6 mg/dL B-Type Natriuretic Peptide 281.70 0-100 pg/mL Microbiology Date/Time Source Procedure Growth Status 01/30/25 16:12 Urine - [place] Urine Culture - Preliminary Resulted Assessment Rule out structural heart disease Septic shock secondary to urinary tract infection Acute anemia Hyperkalemia History of hypertension Dyslipidemia Thyroid disease Type 2 diabetes mellitus Chronic kidney disease Breast cancer with bone metastasis (per imaging report provided by bernard Mendez) Plan/Recommendation We will continue with the following plan/recommendations (Dr. Zhang): Case discussed with . We will proceed with obtaining a transthoracic echocardiogram to evaluate cardiac function. Chest x-ray report reveals diffuse bilateral interstitial opacities, with borderline enlarged heart. The patient denies any orthopnea or dyspnea on exertion. BNP level of 281.70pg/mL. Closely monitor hemoglobin and hematocrit levels, transfuse as needed. Upgraded to telemetry. Consider goals of care with family. Thank you for allowing us to care for this patient. Please call with any questions or concerns. Critical care time spent: 44 minutes This medical document was created using an electronic medical record system with voice recognition software and computerized dictation system. Although this document has been carefully reviewed, there might still be some phonetic and typographical errors. Occasional wrong-word or ``sound-alike substitutions may have occurred due to the inherent limitations of voice recognition software. These areas are purely typographical due to imperfections of the software programs and do not reflect any compromise in the patient's medical care. Please read the chart carefully and recognize, using context, where these substitutions have occurred. Plan discussed with: Patient NYHA Physical activity limitations: NA Date of Service: Jan 31, 2025 Billing Provider: YO TORREZ [employer] MANAGER Cardiology Common Codes: 79060-ONSABJI INP/OBS CARE (High) Cardiology Consultation Codes: 04670-[id number] CONSULT <45MIN SAGE ZHANG MD 02/01/25 0658: Family History: Patient reports no known family medical history. Allergies: Coded Allergies: Levofloxacin (Verified Allergy, Severe, 01/30/25) Amoxicillin (Verified Allergy, Unknown, 01/30/25) Home Meds Reported Medications Cholestyramine (Cholestyramine) Pow, 4 GM PO BID, POW 01/30/25 Multiple Vitamin (Multivitamins) Tab, 100 TAB PO DAILY, #90 TAB 3 Refills 01/30/25 Araujo's Yeast (Saccharomyces Boulardii) 250 Mg Cap, 250 MG PO, CAP 01/30/25 Lovastatin (Lovastatin) 20 Mg Tab, 20 MG PO, TAB 01/30/25 Levothyroxine Sodium (Levothyroxine Sodium) 100 Mcg Tab, 100 MCG PO QAM for 30 Days, MCG 01/30/25 Letrozole (Femara) 2.5 Mg Tab, 2.5 MG PO, TAB 01/30/25 Gabapentin (Gabapentin) 300 Mg Cap, 400 MG PO BID for 30 Days, MG 01/30/25 Oxycodone Hcl (OXYCODONE HCL) 5 Mg Tb, 20 MG PO Q6HPRN PRN for PAIN SCALE 7 THRU 10, TAB 01/30/25 Amlodipine Besylate (Amlodipine Besylate) 5 Mg Tab, 1 TAB PO DAILY 01/30/25 Cholestyramine (Cholestyramine) 4 Gm Pow, 1 PKT PO BID 01/30/25 Lisinopril & Hydrochlorothiazi (Lisinopril/Hydrochlorothi) 1 Tab Tab, 1 TAB PO DAILY 01/30/25 Discontinued Reported Medications Levothyroxine Sodium (Levothyroxine Sodium) 88 Mcg Tab, 1 TAB PO DAILY 01/30/25 Plan/Recommendation pt needs anemia workup and goals of care discussion we have little to offer pt signing off Plan discussed with: Patient YO TORREZ Jan 31, 2025 15:45 SAGE ZHANG MD Feb 01, 2025 06:58
--- NOTE | 2025-01-31 16:02 | DVHINCON2 ---
Date of service: Jan 31, [address] Solomon Reason for Consultation Generalized weakness tiredness which history breast cancer anemia History of Present Illness This 84-year-old female with a history of breast cancer with radical mastectomy and chemo admitted with complaints of severe weakness tiredness patient has also found to be anemic patient has history of diabetes COPD chronic kidney disease congestive heart failure. With a recurrent UTIs etc.. Patient had multiple surgeries include neck fusion back surgery right knee replacement etc.. Patient complaints of generalized weakness and tiredness no hematemesis melena or hematochezia Past Medical History History of breast cancer congestive heart failure hyperlipidemia COPD diabetes Past Surgical History Appendectomy hysterectomy mastectomy tonsillectomy Family History: Patient reports no known family medical history. Family History Unremarkable Social History Denies smoking or drinking but used to smoke before Allergies: Coded Allergies: Levofloxacin (Verified Allergy, Severe, 01/30/25) Amoxicillin (Verified Allergy, Unknown, 01/30/25) Home Meds Reported Medications Cholestyramine (Cholestyramine) Pow, 4 GM PO BID, POW 01/30/25 Multiple Vitamin (Multivitamins) Tab, 100 TAB PO DAILY, #90 TAB 3 Refills 01/30/25 Araujo's Yeast (Saccharomyces Boulardii) 250 Mg Cap, 250 MG PO, CAP 01/30/25 Lovastatin (Lovastatin) 20 Mg Tab, 20 MG PO, TAB 01/30/25 Levothyroxine Sodium (Levothyroxine Sodium) 100 Mcg Tab, 100 MCG PO QAM for 30 Days, MCG 01/30/25 Letrozole (Femara) 2.5 Mg Tab, 2.5 MG PO, TAB 01/30/25 Gabapentin (Gabapentin) 300 Mg Cap, 400 MG PO BID for 30 Days, MG 01/30/25 Oxycodone Hcl (OXYCODONE HCL) 5 Mg Tb, 20 MG PO Q6HPRN PRN for PAIN SCALE 7 THRU 10, TAB 01/30/25 Amlodipine Besylate (Amlodipine Besylate) 5 Mg Tab, 1 TAB PO DAILY 01/30/25 Cholestyramine (Cholestyramine) 4 Gm Pow, 1 PKT PO BID 01/30/25 Lisinopril & Hydrochlorothiazi (Lisinopril/Hydrochlorothi) 1 Tab Tab, 1 TAB PO DAILY 01/30/25 Discontinued Reported Medications Levothyroxine Sodium (Levothyroxine Sodium) 88 Mcg Tab, 1 TAB PO DAILY 01/30/25 Current Medications Current Medications Medications (Trade) Dose Ordered Sig/Sheila Route PRN Reason Start Time Stop Time Status Last Admin Amlodipine Besylate (Norvasc Tablet) 5 mg DAILY PO 01/31/25 10:00 01/31/25 15:22 DC Cholestyramine Resin (Questran Powder) 4 gm BID@1100,2300 PO 01/30/25 23:00 01/31/25 10:54 Levothyroxine Sodium (Synthroid Tablet) 88 mcg QAM PO 01/31/25 07:00 01/31/25 06:07 Patient Own Medication 1 tab DAILY PO 01/31/25 10:00 01/31/25 10:53 DC Diagnostic Test (Pha) (Accu-Chek Comfort Curve T) 1 strip ACHS 01/30/25 22:00 01/31/25 11:56 Insulin Human Regular (InsuLIN R) ACHS SC 01/30/25 22:00 Dextrose 50 ml UD PRN IV Blood Sugar LESS THAN 60 01/30/25 17:15 Enoxaparin Sodium (Lovenox) 30 mg DAILY SC 01/31/25 10:00 01/31/25 10:54 Pantoprazole Sodium (Protonix) 40 mg DAILY IV 01/31/25 10:00 01/31/25 10:54 Levofloxacin 50 ml @ 50 mls/hr Q48H IV 02/01/25 17:30 01/30/25 20:27 DC Azithromycin 250 ml @ 125 mls/hr DAILY IV 01/31/25 10:00 01/31/25 10:54 Oxycodone HCl (OxyCONTIN ER Tablet) 20 mg Q6HP PRN PO PAIN SCALE 7 THRU 10 01/30/25 20:30 01/30/25 21:02 Linezolid 300 ml @ 150 mls/hr Q12HR@0800,2200 IV 01/31/25 22:00 Sodium Bicarbonate 75 ml/ Dextrose/Sodium Chloride 1,075 ml @ 75 mls/hr [id number] IV 01/31/25 15:30 Review of Systems Noncontributory Vital Signs Vital Signs Date Time Temp Pulse Resp B/P (MAP) Pulse Ox O2 Delivery O2 Flow Rate FiO2 01/31/25 13:00 98.1 92 17 106/44 (64) 93 98.1 01/31/25 11:45 Nasal Cannula 2.0 01/31/25 11:45 28 Physical Exam Moderately built and nourished female in no acute distress but looks chronically ill-looking Pallor mild Lungs clear Cardiovascular unremarkable Abdomen is soft no tenderness no masses Extremities no edema Labs/Diagnostic Data Examination mild no icterus Labs Test 01/31/25 11:55 01/31/25 11:40 01/31/25 08:37 01/31/25 04:50 Range/Units POC Glucose 105 70-106 mg/dl Influenza Type A Antigen Negative Negative Influenza Type B Antigen Negative Negative SARS-CoV-2 Antigen (Rapid) Negative NEGATIVE Hemoglobin 7.4 L 12.2-16.2 g/dL Hematocrit 22.8 L 36.0-46.0 % White Blood Count 4.6 4.4-10.8 10^3/uL Red Blood Count 2.41 L 4.0-5.20 10^6/uL Mean Corpuscular Volume 90.1 80.0-100.0 fL Mean Corpuscular Hemoglobin 29.7 28.0-32.0 pg Mean Corpuscular Hemoglobin Concent 32.9 32.0-36.0 g/dL Red Cell Distribution Width 17.2 H 11.8-14.3 % Platelet Count 171 140-450 10^3/uL Mean Platelet Volume 8.7 6.9-10.8 fL Neutrophils (%) (Auto) 85.8 H 37.0-80.0 % Lymphocytes (%) (Auto) 4.6 L 10.0-50.0 % Monocytes (%) (Auto) 9.1 0.0-12.0 % Eosinophils (%) (Auto) 0.3 0.0-7.0 % Basophils (%) (Auto) 0.2 0.0-2.0 % Neutrophils # (Auto) 4.0 1.6-8.6 10 ^3/uL Lymphocytes # (Auto) 0.2 L 0.4-5.4 10 ^3/uL Monocytes # (Auto) 0.4 0-1.3 10 ^3/uL Eosinophils # (Auto) 0 0-0.8 10 ^3/uL Basophils # (Auto) 0 0-0.2 10 ^3/uL Nucleated Red Blood Cells 0.1 % Sodium Level 136 136-145 mmol/L Potassium Level 5.4 H 3.5-5.1 mmol/L Chloride Level 112 H 98-107 mmol/L Carbon Dioxide Level 17 L 20-31 mmol/L Anion Gap 7 5-15 Blood Urea Nitrogen 57 H 9-23 mg/dL Creatinine 6.45 H 0.550-1.02 mg/dL Glomerular Filtration Rate Calc 6 >90 mL/min BUN/Creatinine Ratio 8.8 L 10.0-20.0 Serum Glucose 106 74-106 mg/dL Calcium Level 8.2 L 8.7-10.4 mg/dL Total Bilirubin < 0.2 L 0.2-1.0 mg/dL Aspartate Amino Transferase (AST) 36 13-40 U/L Alanine Aminotransferase (ALT) 21 7-40 U/L Alkaline Phosphatase 58 46-116 U/L Total Protein 5.2 L 5.7-8.2 g/dL Albumin 3.2 3.2-4.8 g/dL Triglycerides Level 81 < 150 mg/dL Cholesterol Level 100 < 200 mg/dL LDL Cholesterol 53 < 100 mg/dL HDL Cholesterol 33 L 40-59 mg/dL Vitamin B12 Level 471 211-911 pg/mL Vitamin D 25-Hydroxy 34.7 30.0-100 ng/mL Thyroid Stimulating Hormone (TSH) 3.61 0.55-4.78 uIU/mL Parathyroid Hormone (Intact) 201.3 H 18.4-80.1 pg/mL Test 01/30/25 19:44 01/30/25 16:12 01/30/25 13:36 Range/Units Troponin I High Sensitivity 19 </=34 ng/L Urine Color Colorless Yellow Urine Clarity Ex.turbid Clear Urine pH 5.0 5.0-9.0 Urine Specific [place] 1.008 1.001-1.035 Urine Protein Trace H Negative Urine Ketones Negative Negative Urine Blood Trace H Negative /uL Urine Nitrite Negative Negative Urine Bilirubin Negative Negative Urine Urobilinogen Normal Negative mg/dL Urine Leukocyte Esterase 3+ Negative /uL Urine RBC 12 0 - 4 /hpf Urine WBC Clumps Present None Seen /hpf Urine Microscopic WBC 456 H 0-5 /HPF Urine Squamous Epithelial Cells None seen <5 /hpf Urine Bacteria Few H None Seen /hpf Urine Creatinine 49.98 30.0-125.0 mg/dL Urine Protein/Creatinine Ratio 0.74 Urine Sodium 56 40-220 mmol/L Urine Glucose Normal Normal mg/dL Urine Total Protein 37.1 H 1-14 mg/dL Hemoglobin A1c 4.9 <5.7 % A1C Magnesium Level 1.6 1.6-2.6 mg/dL B-Type Natriuretic Peptide 281.70 0-100 pg/mL Microbiology Date/Time Source Procedure Growth Status 01/30/25 16:12 Urine - [place] Urine Culture - Preliminary Resulted Assessment 84-year-old with a history of diabetes hyperlipidemia status post breast cancer surgery with the chemo and now presenting with complaints of weakness tiredness and abdominal discomfort and anemia patient has history of appendectomy mastectomy hysterectomy tonsillectomy etc.. Physical examination is unremarkable Impression Anemia of undetermined etiology no gross GI bleeding Plan/Recommendation Stool for Occult hematological evaluate Hemoglobin be followed If anemia persist or Hemoccult-positive may need a GI workup Thank you Dr. Ricardo Plan discussed with: Patient VERA RICARDO MD Jan 31, 2025 16:02
[2025-01-31] MEDS: ONDANSETRON HCL 4 MG/2 ML VIAL IV PRN (16:29)
[2025-01-31] MEDS: ALBUMIN 25% 100 ML IV ONE (18:01)
[2025-01-31] MEDS: MIDODRINE HCL 10 MG TAB PO ONE (22:09)
[2025-01-31] MEDS: LINEZOLID 600MG/300ML 300 ML IV SCH (22:14)
[2025-02-01] VITALS (69 sets, daily range): BP systolic 99–154; BP diastolic 32–105; PULSE 77–103; RESP 8–19; TEMP 97.2–99; O2SAT 88–100
[2025-02-01] MEDS: PROCHLORPERAZINE EDISYLATE 5 MG/ML 2ML VIAL IV PRN (01:09)
[2025-02-01] MEDS: NOREPINEPHRINE 8 MG/250ML KIT 250 ML IV SCH (03:44)
[2025-02-01 06:28] LABS: Hematocrit 26.3 % (36.0-46.0); Hemoglobin 8.8 g/dL (12.2-16.2); Mean Corpuscular Hemoglobin 30.0 pg (28.0-32.0); Mean Corpuscular Volume 89.1 fL (80.0-100.0); Nucleated Red Blood Cells % 0.1 %
--- NOTE | 2025-02-01 06:35 | DVHSR ---
APPROVED REPORT EXAM: Two-dimensional and M-mode echocardiogram with Doppler and color Doppler. Blood Pressure: 127/45 mmHg INDICATION Eval cardiac function RISK FACTORS Height: 64, Weight: 149 DIMENSIONS LVDd4.3 (3.8-5.7cm)LA (2D) (1.9-4.0cm)Aortic Root3.4 (2.0-3.7cm) LVDs2.2 (2.5-4.0cm)LA (MM) (1.9-4.0cm)Aortic Cusp Exc1.9 (1.5-2.0cm) EF (%) 81.0 (55-70%)Rt. Atrium (1.9-4.0cm)Asc. Aorta cm IVSd1.2 (0.7-1.1cm)RV (D) (1.8-2.4cm) PWd1.1 (0.7-1.1cm) Mitral Valve MitralMitral Stenosis E wave1.03m/sMV Mean GR.mmHg A wave0.95m/sMV Peak GR.mmHg E/A ratio1.12D MVAcm2 DECEL [id number] 1/2 Timems Aortic Valve Aortic ValveAortic Stenosis LVOT Diameter2.0 (1.8-2.4cm)Doppler AVAcm2 Pulmonic Valve V21.00m/s Tricuspid Valve TR Velocity2.78m/s [id number] Other Information Technically limited study due to patient has a double mastectomy and lying flat on her back. Conclusion lvef 75% moderate LVH normal rv function no severe valve abnormalities noted L sided pleural effusion suspected, correlate to further imaging
[2025-02-01 06:46] LABS: Alanine Aminotransferase 19 U/L (7-40); Alkaline Phosphatase 54 U/L (46-116); Anion Gap 10 (5-15); BUN/Creatinine Ratio 8.2 (10.0-20.0); Potassium 4.5 mmol/L (3.5-5.1); Sodium 137 mmol/L (136-145)
[2025-02-01 06:47] LABS: Albumin 3.4 g/dL (3.2-4.8)
[2025-02-01 06:57] LABS: Bilirubin, Total 0.3 mg/dL (0.2-1.0); Blood Urea Nitrogen 54 mg/dL (9-23); Calcium 8.6 mg/dL (8.7-10.4); Carbon Dioxide 18 mmol/L (20-31); Chloride 109 mmol/L (98-107); Glucose 128 mg/dL (74-106); Total Protein 5.3 g/dL (5.7-8.2)
--- NOTE | 2025-02-01 08:03 | DVHPN2 ---
Progress Note Date Seen: Feb 01, 2025 Medical Necessity Reason Pt with a Central, PICC or Fol: No Subjective Other Systems: tx for hypotension Objective vital signs Vital Sign Date Time Temp Pulse Resp B/P (MAP) Pulse Ox O2 Delivery O2 Flow Rate FiO2 02/01/25 06:45 86 11 140/41 (74) 93 02/01/25 06:00 Nasal Cannula* 3 32 02/01/25 05:00 97.8 97.8 Total Intake and Output 01/31/25 01/31/25 02/01/25 15:00 23:00 07:00 Intake Total 250 ml 1150 ml 1151.25 ml Output Total 150 ml 400 ml Balance 250 ml 1000 ml 751.25 ml medications Current Medications Medications Dose Ordered Sig/Sheila Route Start Time Stop Time Status Last Admin Dose Admin Ondansetron HCl 4 mg Q4HP PRN IV 01/30/25 15:45 01/31/25 22:34 4 MG Acetaminophen 650 mg Q6HP PRN PO 01/30/25 15:45 Nitroglycerin 0.4 mg Q5MINP PRN SL 01/30/25 15:45 Morphine Sulfate 2 mg Q30M PRN IV 01/30/25 15:45 Cholestyramine Resin 4 gm BID@1100,2300 PO 01/30/25 23:00 01/31/25 10:54 4 GM Levothyroxine Sodium 88 mcg QAM PO 01/31/25 07:00 01/31/25 06:07 88 MCG Diagnostic Test (Pha) 1 strip ACHS 01/30/25 22:00 01/31/25 22:00 1 STRIP Insulin Human Regular ACHS SC 01/30/25 22:00 01/31/25 18:33 2 UNITS Dextrose 50 ml UD PRN IV 01/30/25 17:15 Enoxaparin Sodium 30 mg DAILY SC 01/31/25 10:00 01/31/25 10:54 30 MG Pantoprazole Sodium 40 mg DAILY IV 01/31/25 10:00 01/31/25 10:54 40 MG Azithromycin 250 ml @ 125 mls/hr DAILY IV 01/31/25 10:00 01/31/25 10:54 125 MLS/HR Oxycodone HCl 20 mg Q6HP PRN PO 01/30/25 20:30 01/31/25 23:22 20 MG Linezolid 300 ml @ 150 mls/hr Q12HR@0800,2200 IV 01/31/25 22:00 01/31/25 22:14 150 MLS/HR Sodium Bicarbonate 75 ml/ Dextrose/Sodium Chloride 1,075 ml @ 75 mls/hr [id number] IV 01/31/25 15:30 Prochlorperazine Edisylate 10 mg Q6HP PRN IV 02/01/25 00:00 02/01/25 01:09 10 MG Norepinephrine Bitartrate 250 ml @ 3.75 mls/hr Q24H IV 02/01/25 03:30 02/01/25 03:44 3.75 MLS/HR Examination: GENERAL:Abnormal, HEENT:Abnormal, LUNGS:Abnormal, CVS:Abnormal, ABDOMEN:Abnormal laboratory and microbiology Laboratory Tests 02/01/25 04:51 Test 02/01/25 04:51 Range/Units Serum Glucose 128 H 74-106 mg/dL Microbiology Date/Time Source Procedure Growth Status 01/30/25 16:12 Urine - [place] Urine Culture - Preliminary Resulted Problem List/Assessment/Plan Problem List/Assessment/Plan hypotension malignancy stage V ckd frailty preserved LVEF on echo no further cv recs very poor prognosis, consider goals of care signing off, please call for ?s Plan discussed with: Patient Date of Service: Feb 01, 2025 Billing Provider: SAGE ZHANG MD Common Visit Codes: NOT BILLABLE SAGE ZHANG MD Feb 01, 2025 08:03
--- NOTE | 2025-02-01 08:40 | DVHPN2 ---
Progress Note - Dictate Date Seen: Feb 01, 2025 Medical Necessity Reason Pt with a Central, PICC or Fol: No Subjective Patient was transferred to the [facility] yesterday evening because of hypotension. Started on Levophed which has been discontinued today morning. Patient is seen and examined. Says she feels terrible. vital signs Vital Sign Date Time Temp Pulse Resp B/P (MAP) Pulse Ox O2 Delivery O2 Flow Rate FiO2 02/01/25 06:45 86 11 140/41 (74) 93 02/01/25 06:00 Nasal Cannula* 3 32 02/01/25 05:00 97.8 97.8 Total Intake and Output 01/31/25 01/31/25 02/01/25 15:00 23:00 07:00 Intake Total 250 ml 1150 ml 1151.25 ml Output Total 150 ml 400 ml Balance 250 ml 1000 ml 751.25 ml medications Current Medications Medications Dose Ordered Sig/Sheila Route Start Time Stop Time Status Last Admin Dose Admin Ondansetron HCl 4 mg Q4HP PRN IV 01/30/25 15:45 01/31/25 22:34 4 MG Acetaminophen 650 mg Q6HP PRN PO 01/30/25 15:45 Nitroglycerin 0.4 mg Q5MINP PRN SL 01/30/25 15:45 Morphine Sulfate 2 mg Q30M PRN IV 01/30/25 15:45 Cholestyramine Resin 4 gm BID@1100,2300 PO 01/30/25 23:00 01/31/25 10:54 4 GM Levothyroxine Sodium 88 mcg QAM PO 01/31/25 07:00 01/31/25 06:07 88 MCG Diagnostic Test (Pha) 1 strip ACHS 01/30/25 22:00 01/31/25 22:00 1 STRIP Insulin Human Regular ACHS SC 01/30/25 22:00 01/31/25 18:33 2 UNITS Dextrose 50 ml UD PRN IV 01/30/25 17:15 Enoxaparin Sodium 30 mg DAILY SC 01/31/25 10:00 01/31/25 10:54 30 MG Pantoprazole Sodium 40 mg DAILY IV 01/31/25 10:00 01/31/25 10:54 40 MG Azithromycin 250 ml @ 125 mls/hr DAILY IV 01/31/25 10:00 01/31/25 10:54 125 MLS/HR Oxycodone HCl 20 mg Q6HP PRN PO 01/30/25 20:30 01/31/25 23:22 20 MG Linezolid 300 ml @ 150 mls/hr Q12HR@0800,2200 IV 01/31/25 22:00 01/31/25 22:14 150 MLS/HR Sodium Bicarbonate 75 ml/ Dextrose/Sodium Chloride 1,075 ml @ 75 mls/hr [id number] IV 01/31/25 15:30 Prochlorperazine Edisylate 10 mg Q6HP PRN IV 02/01/25 00:00 02/01/25 01:09 10 MG Norepinephrine Bitartrate 250 ml @ 3.75 mls/hr Q24H IV 02/01/25 03:30 02/01/25 03:44 3.75 MLS/HR objective Patient is more alert HEENT: Normocephalic Lungs: Bilateral good air entry CVS: S1, S2 regular rate rhythm Abdomen: Soft, bowel sounds present CLAIM TRAINEE: No focal deficits Extremities: No edema laboratory and microbiology Laboratory Tests 02/01/25 04:51 Test 02/01/25 04:51 Range/Units Serum Glucose 128 H 74-106 mg/dL Problem List Nonoliguric acute kidney injury secondary to ATN. Underlying Chronic kidney disease stage 3 UTI with Enterococcus Metabolic encephalopathy Hyperkalemia: Improved History of breast cancer Anemia Debility Assessment/Plan Continue with bicarb drip. Albumin with Bumex x1 today. Discussed with daughter about goals of care. Did discuss with her that the patient was not a candidate for renal replacement therapy because of her underlying comorbidities and her frail condition. She is leaning towards hospice. Would like to discuss with her sibling and mother Overall prognosis is poor. Plan discussed with: Daughter DEBORAH GARLAND MD Feb 01, 2025 08:40
[2025-02-01] MEDS: BUMETANIDE 2.5mg/10ml (0.25 mg/ml) INJ IV ONE (11:39)
[2025-02-01] MEDS: ALBUMIN 25% 100 ML IV ONE (11:40)
--- NOTE | 2025-02-01 13:24 | DVHPN2 ---
Assessment/Plan Assessment/Plan ICU note 84 F w breast cancer s/p b/l mastectomy, COPD group E, CKD 5, NIDDM, HFpE admitted for weakness, found to have e faecalis UTI, initially on med surg, had hypotension and upgraded to [facility] and started on pressors. seen today during rounds. off pressors, now hypertensive. family discussion, will plan for hospice dc tomorrow. c/w iv zyfox for now. 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
--- NOTE | 2025-02-01 14:03 | DVHPN2 ---
Progress Note - Dictate Date Seen: Feb 01, 2025 Medical Necessity Reason Pt with a Central, PICC or Fol: No Subjective Patient with breast cancer with anemia had some low hemoglobin has dropped to seven Family Is thinking about hospice for this patient with breast cancer vital signs Vital Sign Date Time Temp Pulse Resp B/P (MAP) Pulse Ox O2 Delivery O2 Flow Rate FiO2 02/01/25 13:45 91 15 141/55 (83) 95 02/01/25 12:00 97.7 97.7 02/01/25 12:00 Nasal Cannula* 4 36 Total Intake and Output 01/31/25 01/31/25 02/01/25 15:00 23:00 07:00 Intake Total 250 ml 1150 ml 1151.25 ml Output Total 150 ml 400 ml Balance 250 ml 1000 ml 751.25 ml medications Current Medications Medications Dose Ordered Sig/Sheila Route Start Time Stop Time Status Last Admin Dose Admin Ondansetron HCl 4 mg Q4HP PRN IV 01/30/25 15:45 02/01/25 08:59 4 MG Acetaminophen 650 mg Q6HP PRN PO 01/30/25 15:45 Cholestyramine Resin 4 gm BID@1100,2300 PO 01/30/25 23:00 01/31/25 10:54 4 GM Levothyroxine Sodium 88 mcg QAM PO 01/31/25 07:00 01/31/25 06:07 88 MCG Diagnostic Test (Pha) 1 strip ACHS 01/30/25 22:00 02/01/25 11:30 1 STRIP Insulin Human Regular ACHS SC 01/30/25 22:00 02/01/25 12:01 3 UNITS Dextrose 50 ml UD PRN IV 01/30/25 17:15 Enoxaparin Sodium 30 mg DAILY SC 01/31/25 10:00 02/01/25 09:00 30 MG Pantoprazole Sodium 40 mg DAILY IV 01/31/25 10:00 02/01/25 08:59 40 MG Azithromycin 250 ml @ 125 mls/hr DAILY IV 01/31/25 10:00 02/01/25 08:59 125 MLS/HR Oxycodone HCl 20 mg Q6HP PRN PO 01/30/25 20:30 01/31/25 23:22 20 MG Linezolid 300 ml @ 150 mls/hr Q12HR@0800,2200 IV 01/31/25 22:00 02/01/25 08:59 150 MLS/HR Sodium Bicarbonate 75 ml/ Dextrose/Sodium Chloride 1,075 ml @ 75 mls/hr [id number] IV 01/31/25 15:30 02/01/25 08:58 75 MLS/HR Prochlorperazine Edisylate 10 mg Q6HP PRN IV 02/01/25 00:00 02/01/25 01:09 10 MG Norepinephrine Bitartrate 250 ml @ 3.75 mls/hr Q24H IV 02/01/25 03:30 02/01/25 03:44 3.75 MLS/HR objective Abdomen is soft nontender laboratory and microbiology Laboratory Tests 02/01/25 04:51 Test 02/01/25 04:51 Range/Units Serum Glucose 128 H 74-106 mg/dL Assessment/Plan 84-year-old with a history of diabetes hyperlipidemia status post breast cancer surgery with the chemo and now presenting with complaints of weakness tiredness and abdominal discomfort and anemia patient has history of appendectomy mastectomy hysterectomy tonsillectomy etc.. Physical examination is unremarkable Anemia and possible GI bleeding Family is Thinking about possible hospice Prognosis is guarded Thank you Dr. Ricardo Plan discussed with: Patient VERA RICARDO MD Feb 01, 2025 14:03
--- NOTE | 2025-02-01 22:33 | DVHPN2 ---
Progress Note - Dictate Date Seen: Feb 01, 2025 Medical Necessity Reason Pt with a Central, PICC or Fol: No Subjective Patient seen and examined at bedside. On supplemental oxygen Overnight events reviewed. History of Present Illness: An 84-year-old female with past medical history including COPD, CHF, breast cancer status post bilateral mastectomy, CKD, and recurrent UTIs, who presented to the ED on 01/30/25 with c/o generalized weakness x2 days. Daughter reported recent admission to [facility] from December 17 to January 06 for UTI and was on doxycycline. Over the past 2 days prior to presentation, pt has been progressively getting weaker and has been unable to hold bottles or cups in her hands. Denied any chest pain, shortness of breath, fever, chills, or GI symptoms. Patient was admitted for further care, and pulmonary consultation is requested for evaluation and management of acute hypoxic respiratory failure and septic shock. Review of Systems: 14-point review of systems negative unless otherwise noted above. Past Medical History: COPD,, hyperlipidemia, diabetes, CKD, CHF, breast cancer status post bilateral mastectomy, yeast infection, recurrent UTIs, Past Surgical History: Appendectomy, Hysterectomy, Mastectomy, Other (Neck fusion, back surgery, and right knee replacement), Tonsillectomy Medications: Reviewed. Allergies: Amoxicillin. Family History: No family history of premature CAD. No family history of lung disorders. Social History: Former smoker. No alcohol or illicit drug use. vital signs Vital Sign Date Time Temp Pulse Resp B/P (MAP) Pulse Ox O2 Delivery O2 Flow Rate FiO2 02/01/25 20:30 86 10 92 Nasal Cannula* 4 36 02/01/25 20:00 97.2 130/50 (76) 97.2 Total Intake and Output 01/31/25 01/31/25 02/01/25 15:00 23:00 07:00 Intake Total 250 ml 1150 ml 1151.25 ml Output Total 150 ml 400 ml Balance 250 ml 1000 ml 751.25 ml medications Current Medications Medications Dose Ordered Sig/Sheila Route Start Time Stop Time Status Last Admin Dose Admin Ondansetron HCl 4 mg Q4HP PRN IV 01/30/25 15:45 02/01/25 16:04 4 MG Acetaminophen 650 mg Q6HP PRN PO 01/30/25 15:45 Cholestyramine Resin 4 gm BID@1100,2300 PO 01/30/25 23:00 7/4/25 10:54 4 GM Levothyroxine Sodium 88 mcg QAM PO 01/31/25 07:00 01/31/25 06:07 88 MCG Diagnostic Test (Pha) 1 strip ACHS 01/30/25 22:00 02/01/25 20:33 1 STRIP Insulin Human Regular ACHS SC 01/30/25 22:00 02/01/25 20:44 2 UNITS Dextrose 50 ml UD PRN IV 01/30/25 17:15 Enoxaparin Sodium 30 mg DAILY SC 01/31/25 10:00 02/01/25 09:00 30 MG Pantoprazole Sodium 40 mg DAILY IV 01/31/25 10:00 02/01/25 08:59 40 MG Azithromycin 250 ml @ 125 mls/hr DAILY IV 01/31/25 10:00 02/01/25 08:59 125 MLS/HR Oxycodone HCl 20 mg Q6HP PRN PO 01/30/25 20:30 02/01/25 16:04 20 MG Linezolid 300 ml @ 150 mls/hr Q12HR@0800,2200 IV 01/31/25 22:00 02/01/25 20:43 150 MLS/HR Sodium Bicarbonate 75 ml/ Dextrose/Sodium Chloride 1,075 ml @ 75 mls/hr [id number] IV 01/31/25 15:30 02/01/25 08:58 75 MLS/HR Prochlorperazine Edisylate 10 mg Q6HP PRN IV 02/01/25 00:00 02/01/25 20:42 10 MG Norepinephrine Bitartrate 250 ml @ 3.75 mls/hr Q24H IV 02/01/25 03:30 02/01/25 03:44 3.75 MLS/HR objective Gen.: Patient lying in bed in no apparent distress. On supplemental oxygen. Head: Normocephalic, atraumatic. Eyes: EOMI/PERRLA. Ears: Normal hearing. Normal anatomy. Neck/trachea: Trachea midline, supple. Nose: Normal external anatomy. Mouth: Moist mucous membranes. Chest: Decreased air entry bilaterally. No wheezing or rhonchi. Cardiovascular: Positive S1, positive S2. Regular rate and rhythm. Abdomen: Positive bowel sounds in all 4 quadrants. Soft, non-tender, non- distended. : Deferred. Rectal: Deferred. Skin: Warm, dry. Intact. Extremities: 2+ radial pulses bilaterally. No lower extremity edema. Neuro: Awake, alert, oriented x3. No gross motor or sensory deficits. Cranial nerves II through XII intact. Gait not assessed. laboratory and microbiology Laboratory Tests 02/01/25 04:51 Test 02/01/25 04:51 Range/Units Serum Glucose 128 H 74-106 mg/dL Assessment/Plan Impression: Acute hypoxic respiratory failure Breast cancer with metastasis Generalized weakness Urinary tract infection Septic shock Plan: Supplemental oxygen Titrate to keep O2 sats above 92%. Currently off Levophed, hemodynamically stable. Hospice eval. Continue antibiotics Follow up cultures Monitor hemoglobin Monitor renal function. Monitor electrolytes. Supplement as necessary. Monitor ins and outs. Follow up Oncology recs Supportive care Plan for discharge home with Hospice. DVT prophylaxis. Prognosis: Poor given patient's multiple co-morbidities. Rest of plan per hospitalist and other consultants. Thank you Dr. Luciano for allowing me to participate in this patient's care. Further recommendations will depend on the patient's clinical course. Please do not hesitate to contact me if you have any questions or concerns. This medical document was created using an electronic medical record system with [employer] computerized dictation system. Although these documentations are being carefully reviewed, there may still be some phonetic and typographical changes. The errors are purely typographical, due to imperfection on the software program, and do not reflect any compromise in the patient's medical care. Plan discussed with: Patient, Other (MANUELITO Ocasio) JONATHAN GUILLORY MD Feb 01, 2025 22:33
[2025-02-02] VITALS (7 sets, daily range): BP systolic 130–164; BP diastolic 65–77; PULSE 78–101; RESP 10–22; TEMP 97.7–98.5; O2SAT 92–94
[2025-02-02] MEDS: SODIUM BICARB 8.4% 50Meq/50ml SYR Vial IV ONE (00:59)
[2025-02-02 07:09] LABS: Hematocrit 26.4 % (36.0-46.0); Hemoglobin 8.9 g/dL (12.2-16.2); Mean Corpuscular Hemoglobin 30.0 pg (28.0-32.0); Mean Corpuscular Volume 88.5 fL (80.0-100.0); Nucleated Red Blood Cells % 0.1 %
[2025-02-02 07:25] LABS: Alanine Aminotransferase 18 U/L (7-40); Alkaline Phosphatase 52 U/L (46-116); Anion Gap 9 (5-15); BUN/Creatinine Ratio 7.4 (10.0-20.0); Calcium 8.9 mg/dL (8.7-10.4); Chloride 106 mmol/L (98-107); Glucose 99 mg/dL (74-106); Potassium 4.5 mmol/L (3.5-5.1); Total Protein 5.7 g/dL (5.7-8.2)
[2025-02-02 07:26] LABS: Albumin 3.8 g/dL (3.2-4.8)
[2025-02-02 07:38] LABS: Bilirubin, Total 0.2 mg/dL (0.2-1.0); Blood Urea Nitrogen 49 mg/dL (9-23); Carbon Dioxide 20 mmol/L (20-31); Sodium 135 mmol/L (136-145)
[2025-02-02] MEDS ORDERED: LINE1TAB6 PO (12:23)
--- NOTE | 2025-02-02 12:24 | DVHDS2 ---
Discharge Summary Date of Admission Jan 30, 2025 at 15:39 Date of Discharge: Feb 02, 2025 Labs/Diagnostic Data: Laboratory Results Test 02/02/25 11:31 02/02/25 05:51 01/31/25 11:40 01/31/25 04:50 POC Glucose 141 mg/dl (70-106) White Blood Count 6.8 10^3/uL (4.4-10.8) Red Blood Count 2.98 10^6/uL (4.0-5.20) Hemoglobin 8.9 g/dL (12.2-16.2) Hematocrit 26.4 % (36.0-46.0) Mean Corpuscular Volume 88.5 fL (80.0-100.0) Mean Corpuscular Hemoglobin 30.0 pg (28.0-32.0) Mean Corpuscular Hemoglobin Concent 33.9 g/dL (32.0-36.0) Red Cell Distribution Width 16.8 % (11.8-14.3) Platelet Count 190 10^3/uL (140-450) Mean Platelet Volume 8.6 fL (6.9-10.8) Neutrophils (%) (Auto) 81.7 % (37.0-80.0) Lymphocytes (%) (Auto) 4.6 % (10.0-50.0) Monocytes (%) (Auto) 10.3 % (0.0-12.0) Eosinophils (%) (Auto) 3.1 % (0.0-7.0) Basophils (%) (Auto) 0.3 % (0.0-2.0) Neutrophils # (Auto) 5.6 10 ^3/uL (1.6-8.6) Lymphocytes # (Auto) 0.3 10 ^3/uL (0.4-5.4) Monocytes # (Auto) 0.7 10 ^3/uL (0-1.3) Eosinophils # (Auto) 0.2 10 ^3/uL (0-0.8) Basophils # (Auto) 0 10 ^3/uL (0-0.2) Nucleated Red Blood Cells 0.1 % Sodium Level 135 mmol/L (136-145) Potassium Level 4.5 mmol/L (3.5-5.1) Chloride Level 106 mmol/L (98-107) Carbon Dioxide Level 20 mmol/L (20-31) Anion Gap 9 (5-15) Blood Urea Nitrogen 49 mg/dL (9-23) Creatinine 6.62 mg/dL (0.550-1.02) Glomerular Filtration Rate Calc 6 mL/min (>90) BUN/Creatinine Ratio 7.4 (10.0-20.0) Serum Glucose 99 mg/dL (74-106) Calcium Level 8.9 mg/dL (8.7-10.4) Total Bilirubin 0.2 mg/dL (0.2-1.0) Aspartate Amino Transferase (AST) 33 U/L (13-40) Alanine Aminotransferase (ALT) 18 U/L (7-40) Alkaline Phosphatase 52 U/L (46-116) Total Protein 5.7 g/dL (5.7-8.2) Albumin 3.8 g/dL (3.2-4.8) Influenza Type A Antigen Negative (Negative) Influenza Type B Antigen Negative (Negative) SARS-CoV-2 Antigen (Rapid) Negative (NEGATIVE) Triglycerides Level 81 mg/dL (< 150) Cholesterol Level 100 mg/dL (< 200) LDL Cholesterol 53 mg/dL (< 100) HDL Cholesterol 33 mg/dL (40-59) Vitamin B12 Level 471 pg/mL (211-911) Vitamin D 25-Hydroxy 34.7 ng/mL (30.0-100) Thyroid Stimulating Hormone (TSH) 3.61 uIU/mL (0.55-4.78) Parathyroid Hormone (Intact) 201.3 pg/mL (18.4-80.1) Test 01/30/25 19:44 01/30/25 16:12 01/30/25 13:36 Troponin I High Sensitivity 19 ng/L (</=34) Urine Color Colorless (Yellow) Urine Clarity Ex.turbid (Clear) Urine pH 5.0 (5.0-9.0) Urine Specific [place] 1.008 (1.001-1.035) Urine Protein Trace (Negative) Urine Ketones Negative (Negative) Urine Blood Trace /uL (Negative) Urine Nitrite Negative (Negative) Urine Bilirubin Negative (Negative) Urine Urobilinogen Normal mg/dL (Negative) Urine Leukocyte Esterase 3+ /uL (Negative) Urine RBC 12 /hpf (0 - 4) Urine WBC Clumps Present /hpf (None Seen) Urine Microscopic WBC 456 /HPF (0-5) Urine Squamous Epithelial Cells None seen /hpf (<5) Urine Bacteria Few /hpf (None Seen) Urine Creatinine 49.98 mg/dL (30.0-125.0) Urine Protein/Creatinine Ratio 0.74 Urine Sodium 56 mmol/L (40-220) Urine Glucose Normal mg/dL (Normal) Urine Total Protein 37.1 mg/dL (1-14) Hemoglobin A1c 4.9 % A1C (<5.7) Magnesium Level 1.6 mg/dL (1.6-2.6) B-Type Natriuretic Peptide 281.70 pg/mL (0-100) Other Laboratory Tests 02/02/25 05:51 Brief Hx & Hospital Course: 84 F w breast cancer s/p b/l mastectomy, COPD group E, CKD 5, NIDDM, HFpE admitted for weakness, found to have e faecalis UTI, initially on med surg, had hypotension and upgraded to JAMIA and started on pressors. prior admission to OSH for UTI dc on doxy with no improvement at home which prompted readmission. have VRE on urine. started on linezolid, now off pressors and family intended to proceed with hospice due to not candidate for [employer]INE[employer]. dc with home hospice. Condition at Discharge: Stable Final Diagnosis/Problems List septic shock CKD V breast cancer s/p b/l mastectomy NIDDM COPD group E chronic diastolic heart failure HFpEF acute on chronic hypoxic RF e fecalis UTI anemia chronic dz s/p tf Discharge Disposition: Home with Health Services Discharge Instruct/Medications Diet: Regular Activity: No Restrictions, As Tolerated Scheduled Amlodipine Besylate (Amlodipine Besylate), 1 TAB PO DAILY, (Reported) Cholestyramine (Cholestyramine), 1 PKT PO BID, (Reported) Cholestyramine (Cholestyramine), 4 GM PO BID, (Reported) Gabapentin (Gabapentin), 400 MG PO BID, (Reported) Levothyroxine Sodium (Levothyroxine Sodium), 100 MCG PO QAM, (Reported) Linezolid (Zyvox), 600 MG PO BID Lisinopril & Hydrochlorothiazi (Lisinopril/Hydrochlorothi), 1 TAB PO DAILY, (Reported) Multiple Vitamin (Multivitamins), 100 TAB PO DAILY, (Reported) Scheduled PRN Oxycodone Hcl (Oxycodone Hcl), 20 MG PO Q6HPRN PRN for PAIN SCALE 7 THRU 10, (Reported) Miscellaneous Medications Araujo's Yeast (Saccharomyces Boulardii), 250 MG PO, (Reported) Letrozole (Femara), 2.5 MG PO, (Reported) Lovastatin (Lovastatin), 20 MG PO, (Reported) Discontinued Medications Levothyroxine Sodium (Levothyroxine Sodium), 1 TAB PO DAILY, (Reported) Discharge Statement: "Patient was advised to return to the ER or call 911 if any headaches, dizziness, shortness of breath, chest pain, abdominal pain, bleeding, fevers, or worsening of medical condition. Patient was counseled about treatment plan, medications, possible side effects, patientverbalized understanding. All questions were answered to the best of my ability. This discharge took greater then 30 minutes in planning, reviewing documentation, counseling the patient, and discussing with other team members." ASSESSMENT ASSESSMENT Assessment VRE UTI Date of Service: Feb 02, 2025 Billing Provider: TATA ONEAL MD Common Visit Codes: 76330-TSI/OBS DISCH DAY >30min TATA ONEAL MD Feb 02, 2025 12:24
--- NOTE | 2025-02-03 10:53 | ECG ---
[facility] Test Date: 2025-01-30 Test Time: 13:06:44 Pat Name: MONI ROSE Department: ED Room: 0239T Gender: F [employer] Operator: sherry : 1940 Requested By: DEWAYNE TOMLINSON Order Number: [id number] Reading MD: Measurements Intervals [place] Rate: 86 P: 47 IA: 136 QRS: -77 QRSD: 122 T: 33 QT: 366 QTc: 438 Interpretive Statements Sinus rhythm Right bundle branch block Inferior infarct, old Please click the below link to view image of tracing.
== END 2025-02-02 16:44 | disposition hospice, home (50) | DRG 871 ==
LOC: ER 13:01 → EDBD 13:01 → OVERFLOW 15:39 → WEST WING 18:26 → TELE-WESTW 01-31 17:39 → DOU IN ICU 01-31 21:40 → ICU CENTRL 02-01 03:27 → TELE-EAST 02-01 22:50
PROC: 30233N1 Transfusion of Nonautologous Red Blood Cells into Peripheral Vein, Percutaneous Approach (ICD-10-PCS; principal; 2025-01-31)
DX: A41.9 Sepsis, unspecified organism (principal); G93.41 Metabolic encephalopathy; J96.21 Acute and chronic respiratory failure with hypoxia; R65.21 Severe sepsis with septic shock; N17.0 Acute kidney failure with tubular necrosis; N18.6 End stage renal disease; N39.0 Urinary tract infection, site not specified; I50.32 Chronic diastolic (congestive) heart failure; I13.2 Hypertensive heart and chronic kidney disease with heart failure and with stage 5 chronic kidney disease, or end stage renal disease; J44.1 Chronic obstructive pulmonary disease with (acute) exacerbation; Z16.21 Resistance to vancomycin; D63.8 Anemia in other chronic diseases classified elsewhere; E87.5 Hyperkalemia; E11.22 Type 2 diabetes mellitus with diabetic chronic kidney disease; E78.5 Hyperlipidemia, unspecified; E07.9 Disorder of thyroid, unspecified; R54 Age-related physical debility; Z99.81 Dependence on supplemental oxygen; Z98.1 Arthrodesis status; Z90.13 Acquired absence of bilateral breasts and nipples; Z88.0 Allergy status to penicillin; Z85.3 Personal history of malignant neoplasm of breast; Z96.642 Presence of left artificial hip joint; Z90.710 Acquired absence of both cervix and uterus; Z90.49 Acquired absence of other specified parts of digestive tract; Z96.651 Presence of right artificial knee joint; Z79.84 Long term (current) use of oral hypoglycemic drugs; Z87.440 Personal history of urinary (tract) infections; Z87.891 Personal history of nicotine dependence
CPT/HCPCS: 36415; 71045; 76775; 80053; 80061; 81001; 82306; 82570; 82607; 82962; 83036; 83735; 83880; 83970; 84132; 84156; 84300; 84443; 84484; 85014; 85018; 85025; 86850; 86900; 86901; 86920; 87040; 87081; 87086; 87088; 87186; 87426; 87804; 93005; 93306; 94640; G0378; J1815; J1956; J2405; J2470; P9047